=== PATIENT | male | born 1940 | race Caucasian/White ===

== ENCOUNTER → 2018-04-01 09:19 | Outpatient (CLI) | payer MEDICARE, SELFPAY ==
[2018-04-01 11:30] LABS: PSA,Total- Diagnostic 0.31 ng/mL (0.0-4.0)
== END ==
PROVIDERS: Family Provider Nurse Practitioner Family; PCP Nurse Practitioner Family; Visit Provider Urology
DX: C61 Malignant neoplasm of prostate (principal)
CPT/HCPCS: 36415; 84153

== ENCOUNTER → 2018-04-16 06:32 | Outpatient (CLI) | payer MEDICARE, SELFPAY ==
--- NOTE | 2018-04-16 06:35 | CT_ITS ---
STUDY: CT ABDOMEN WITH CONTRAST REASON FOR EXAM: Male, 78 years old. Renal mass RADIATION DOSAGE (If Supplied By Facility): CTDIvol = ( 19.03 ) mGy, DLP = ( 1211.78 ) mGycm TECHNIQUE: Transaxial images were obtained post I.V. administration of 100mL ml of Isovue 300 contrast, and without oral contrast. Sagittal and coronal images were reconstructed. Individualized dose optimization techniques were used for this CT. COMPARISON: None. FINDINGS: The visualized lung bases are unremarkable. The visualized portions of the heart are within normal limits. There are subcentimeter hypodensities in the liver which are too small to characterize. The liver is otherwise unremarkable. Normal gallbladder and extrahepatic biliary system. Normal pancreas. The spleen is enlarged, measuring 15 cm in maximal dimension. Normal bilateral adrenal glands. There are bilateral subcentimeter nonobstructing renal collecting system stones. There is no hydronephrosis. There are no right renal lesions. There is a 2.8 x 1.9 cm solid mass in the lower pole the left kidney which is highly suspicious for renal cell carcinoma. There is high density material in the collecting system of the left kidney which persists as a filling defect on the delayed images (for example image 28 series 4). This is suspicious for transitional cell carcinoma. The visualized bowel demonstrates no evidence of obstruction. Normal abdominal aorta. Normal inferior vena cava. Normal retroperitoneum. Normal abdominal wall. Normal osseous structures. CT/Abdomen WITH IV Contrast IMPRESSION: 2.8 x 1.9 cm solid mass in the lower pole the left kidney which is highly suspicious for renal cell carcinoma. High density material in the collecting system of the left kidney which persists as a filling defect on the delayed images. This is suspicious for transitional cell carcinoma. Subcentimeter nonobstructing renal stones. No hydronephrosis. Splenomegaly. Electronically Signed: Mark Burris, at 19:46 EDT Tel , Service support ,
[2018-04-16 06:50] LABS: CREATININE FINGERSTICK 1.2 mg/dL (0.70-1.30); EGFR FINGERSTICK > 60.0000 mL/min (>60)
== END ==
PROVIDERS: Family Provider Nurse Practitioner Family; PCP Nurse Practitioner Family; Visit Provider Urology
DX: N28.89 Other specified disorders of kidney and ureter (principal)
CPT/HCPCS: 74160; Q9967

== ENCOUNTER 2018-05-21 12:31 | Inpatient (IN) | payer MEDICARE, SELFPAY ==
[2018-05-12 10:12] VITALS: BP 150/62; PULSE 59; RESP 16; TEMP 36.1; O2SAT 97; BMI 28.6
--- NOTE | 2018-05-12 10:18 | RAD_ITS ---
STUDY: X-RAY CHEST REASON FOR EXAM: Male, 78 years old. Pre-op. TECHNIQUE: PA and lateral chest COMPARISON: 12/14/2015. FINDINGS: The lungs are clear and expanded. Normal cardiomediastinal silhouette, gerry and pleural margins. No acute osseous or upper abdominal process. RAD/Chest PA and Lateral IMPRESSION: No acute cardiopulmonary process. Electronically Signed: Severino Ellison, at 11:09 EDT Tel , Service support ,
--- NOTE | 2018-05-12 10:18 | SDCEKG_ITS ---
Test Reason : Blood Pressure : / mmHG Vent. Rate : 060 BPM Atrial Rate : 060 BPM P-R Int : 180 ms QRS Dur : 148 ms QT Int : 470 ms P-R-T Axes : 034 000 -04 degrees QTc Int : 470 ms Sinus rhythm with Possible Premature atrial complexes with Aberrant conduction Right bundle branch block Abnormal ECG Confirmed by LIZ AVILES, SLADE ([id number]), health editor STANTON TA ([id number]) on 05/14/2018 10:25:35 AM Referred By: Bhargav Morel Confirmed By:SLADE HILL MD
[2018-05-12 11:06] LABS: Color, Urine Yellow (Yellow); Glucose, Dipstick Normal (Normal); Ketone-Dipstick Negative (Negative); Leukocyte Esterase-Dipstick Negative /ul (Negative); Nitrite-Dipstick Negative (Negative); Occult Blood-Urine Negative /ul (Negative); Protein-Dipstick Negative (Negative); Specific Gravity, Urine 1.015 (1.002-1.030); Urine Bilirubin Dipstick Negative (Negative); Urine Clarity Clear (Clear); Urine Urobilinogen Normal (Normal); Urine pH 6.5 (5.0 - 8.0)
[2018-05-12 11:09] LABS: Hematocrit 42.9 % (40-54); Mean Corpuscular Hgb 31.4 pg (27.0-32.0); Mean Corpuscular Volume 89.7 fL (80-94); Mean Platelet Vol. 10.1 fl (6.2-12.0); Platelet Count 128 K/mm3 (150-450); RBC Distribution Width CV 14.3 % (11.6-14.6); RBC Distribution Width SD 47.1 fl (35.1-43.9); Red Blood Count 4.78 M/mm3 (4.6-6.2); White Blood Count 5.6 K/mm3 (4.4-11.0)
[2018-05-12 11:11] LABS: Scan Indicated on CBC? Y/N NO
[2018-05-12 11:21] LABS: ALB/GLOB Ratio 1.3 RATIO (0.9-2.4); AST(SGOT) 26 U/L (15-37); Alanine Aminotransfer ALT/SGPT 38 U/L (16-61); Albumin, Serum 3.9 g/dL (3.2-5.0); Alkaline Phosphatase 62 U/L (45-117); Anion Gap 3 (5-15); BUN 18 mg/dL (7-18); BUN/Creat Ratio 17.5 RATIO (10-20); Calcium,Total 8.9 mg/dL (8.5-10.1); Chloride 110 mmol/L (98-107); Creatinine, Serum 1.03 mg/dL (0.70-1.30); EST Glomerular Filtration Rate 75 mL/min (>60); Est Glom Filt Rate - Afr Amer 90 mL/min (>60); Globulin 2.9 g/dL (2.2-4.2); Glucose 92 mg/dL (74-106); Potassium 4.2 mmol/L (3.5-5.1); Protein, Total 6.8 g/dL (6.4-8.2); Sodium Level 142 mmol/L (136-145)
[2018-05-21] VITALS (10 sets, daily range): BP systolic 103–133; BP diastolic 55–88; PULSE 50–70; RESP 14–20; TEMP 36.1–36.7; O2SAT 93–99; BMI 28.6
[2018-05-21] MEDS: Cefazolin 2 GM in 0.9% Normal Saline 100 ML IV (07:28)
--- NOTE | 2018-05-21 07:30 | KID_PTH ---
PATIENT: ROSA MONROY LOC: MS2 U#:[id number] AGE/SX: 78/M [place] [facility] [place]: Dr. 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 See cancer checklist below. AM:joshua 05/23/18 COMMENT KIDNEY CANCER SUMMARY: Procedure ? partial nephrectomy Specimen laterality - left Tumor size ? 3 x 2.5 x 2 cm Tumor focality - unifocal Macroscopic extent of tumor ? tumor confined to kidney Histologic type ? clear cell renal cell carcinoma Sarcomatoid features ? not identified Tumor necrosis - not identified Histologic grade (Beau nuclear grade) ? G2 (nuclei slightly irregular and focal nuclei evident) Microscopic tumor extension ? tumor limited to kidney Margins ? margin involved by invasive carcinoma Renal parenchymal margin is focally positive. Lymph-Vascular invasion ? not identified Regional lymph nodes ? not submitted Other tumor and/or tumor-like lesions ? mild arterionephrosclerosis PATHOLOGIC STAGE: pT1a Nx Mx The above summary is in compliance with [employer] (CAP) Cancer Protocols Checklist and [place] Joint Committee on Cancer (AJCC), Staging Manual, 8th Ed. Case has been reviewed in consultation with Dr. Forrest who concurs with the above diagnosis. IDC:[id number] MICROSCOPIC DESCRIPTION Slides are reviewed. GROSS DESCRIPTION Received in fixative is one container labeled with the patient's name and designated left renal mass. The specimen consists of a partial nephrectomy specimen measuring 5 x 4 x 2.5 cm and weighing 16 gm. One surface appears to be capsular. This area is inked black and the rest of the specimen is inked blue. Sections reveal a yellow mass with solid area measuring 3 x 2.5 x 2 cm. Area of necrosis or hemorrhage is not seen. The mass appears to be confined. No area of rupture is noted. A focal dobbs white area is noted most likely normal appearing portion of renal parenchyma. Gear Hobber Operator sections are submitted in 10 cassettes as follows: 1-6 ? entire tumor from one end to another end, 7-10 ? possible normal appearing portion of the renal parenchyma. Cassette 10 contains the other end of the specimen. / RASHAD:joshua 05/22/18 TC:0 CPT: 52267
[2018-05-21] MEDS: Bupivacaine 0.5% PF 10 ML VIAL (08:00)
--- NOTE | 2018-05-21 10:54 | PCM.OPRPT ---
Problem List (1) Left kidney mass Status: Acute Report of Operation Date of Procedure: 05/21/18 Pre-Operative Diagnosis: Left renal mass Post-Operative Diagnosis: Same Surgery/Procedure Performed:: Left laparoscopic robotic assisted partial nephrectomy, intraoperative ultrasound Description of Surgical Findings:: 78-year-old male presented to my office for follow-up regarding his prostate cancer he also had a small lesion on the kidney follow-up CAT scan was done from several years ago and we compared it to recent CAT scan that demonstrated an enlarging mass in the lower pole the left kidney suspicious for renal cell carcinoma or a type of kidney cancer we talked about the options of management including continued observation surgical removal and percutaneous procedures after reviewing everything with the patient were to proceed with a laparoscopic-assisted robotic partial nephrectomy in the left side. Patient was taken back to the operating room, timeout was performed, is placed supine on the table and underwent general anesthesia by PROCESSOR SOLID PROPELLANT and the care consultant Dr. Pollack, after intubation the plate Justice catheter was placed, patient was then positioned with the left side up semi-flank with the table flexed, we secured the patient to the table made sure all pressure points were padded we laid the hand flat on his side across the body. The abdomen was shaved prepped and draped in usual sterile fashion, I then marked out my approach to the kidney we really use the lateral light of the rectus, made an incision in the abdomen advanced the Veress needle into the peritoneal cavity filled the peritoneal cavity CO2 gas placed my robotic camera trocar my left robotic trocar right robotic trocar and my second right robotic trocar. I then placed an air seal trocar through the umbilicus. We then docked the robot we placed the camera and the right scissors and left pro-grasp and started dissecting we first dissected by reflecting the colon off the kidney incising the white line of Toldt all the way down from the splenorenal ligament all the way down to the pelvis after the white line of Toldt was released and the colon was dissected off the kidney I then dissected the fatty tissue off Gerota's fascia and marked my way along the kidney until I encountered to the left gonadal vein going into the left renal vein was identified this then traced down the left gonadal vein to I encountered the ureter and the gonadal vein we went below the ureter and gonadal vein and then entered the space behind the kidney behind Gerota's behind behind the psoas muscle we then docked the extra arm and then placed the graft or into retract the kidney cephalad and then dissected along the course of the aorta towards the hilum until we encountered the gonadal vein going into the renal vein and then the renal artery and this renal artery was dissected had early branching and then we dissected down so we got to the base coming off the aorta once the renal artery was completely dissected then we pulled out the fourth arm and then did ultrasonography of the of kidney and identified the tumor is about 3 cm in the lower pole posterior aspect of the kidney, dissected out the lower pole the kidney circumferentially and identified the tumor that was posterior lower lower pole and examining the tumor location I felt a lower pole heminephrectomy would be the best approach to remove this 3 cm tumor so I marked out my incisional approach to the kidney and the tumor circumferentially all the way around dissect all the fat off once the the tumor is identified we had marked our landmarks for approach all the way around to do a complete complete resection then we went down to the hilum identified the renal artery again placed a short bulldog in the long bulldog of the renal artery for clamping the kidney turned pale white immediately and then we started with sharp dissection a broad approach anteriorly on the anterior surface of the kidney working posteriorly to the tumor as we dissected deep into the kidney the tumor was then elevated off there was no violation of the tumor capsule tumor was removed intact with a good margin off the lower pole of the left kidney placed immediately in Endo Catch bag the margins were grossly negative I then ran the base of the tumor with 30V lock ran 3V lock stitches along the base of the tumor resection in the lower heminephrectomy site and then we unclamped the kidney clamp time was 19 minutes with her clamp time. I then placed 0 Vicryl sutures CT1 needle in a bolster fashion in the lower pole of the kidney finally had a nice complete closure and there was no bleeding from the lower part of the kidney we then tacked the kidney back up to the end lateral sidewall, we extracted the tumor through the lower port and closed the tumor with a Thanh Staples stitches for complete closure we then closed our air seal port and her camera trocar with Thanh Staples stitches all the trochars were removed the skin incisions were closed with subcuticular stitches patient's anesthetic is currently being reversed there is minimal blood loss during the case. At the end of the case the kidney was nice and pink and healthy looking. Type of Anesthesia:: General Drains: justice. Estimated Blood Loss (mL): 100cc - Admit VTE Documentation VTE Present on Admission: No VTE Mechan Device Prophylaxis: SCD's VTE Pharm Prophylaxis ordered?: No
[2018-05-21] MEDS: Ketorolac 15 MG/ML Vial IV ×2 (13:36→19:42)
[2018-05-21] MEDS: 0.45% Normal Saline 1,000 ML 75 ML IV (13:37)
[2018-05-21] MEDS: 0.9% NaCl Peripheral Flush Adult/Peds IV (13:37)
[2018-05-21] MEDS: Docusate Sodium 100 MG Capsule PO (19:42)
[2018-05-21] MEDS: Atorvastatin Calcium 10 MG Tablet PO (19:42)
[2018-05-22 01:53] VITALS: BP 108/48; PULSE 61; RESP 18; TEMP 37.1; O2SAT 94
[2018-05-22] MEDS: 0.45% Normal Saline 1,000 ML 75 ML IV (02:01)
[2018-05-22] MEDS: Ketorolac 15 MG/ML Vial IV ×2 (02:01→09:56)
[2018-05-22 08:00] VITALS: BP 116/55; PULSE 65; RESP 18; TEMP 36.8; O2SAT 95
--- NOTE | 2018-05-22 09:48 | CASEMGMT ---
SEE RN PAUL ASSESS LINK: D/C PLAN: HOME Intro role to RN PAUL. Pt sitting up in recliner chair. @ bedside. Assess completed. Pt independent @ home w/ambulation and w/ADL's. Pt uses no DME, still drives, and denies having any questions or needs. CM to follow for discharge planning needs that may arise. Bo BSN DOROTHY MILLER
[2018-05-22 09:55] VITALS: PULSE 74
[2018-05-22] MEDS: Metoprolol(XL)Succ 25 MG Tablet PO (09:55)
[2018-05-22] MEDS: Pantoprazole Sodium 20 MG Tablet PO (09:56)
[2018-05-22] MEDS: Docusate Sodium 100 MG Capsule PO (09:56)
[2018-05-22] MEDS: 0.9% NaCl Peripheral Flush Adult/Peds IV (10:00)
[2018-05-22] MEDS: Magnesium Hydroxide 30 ML UDC 15 ML PO (10:00)
[2018-05-22 10:07] VITALS: RESP 18; O2SAT 94
[2018-05-22 12:31] VITALS: PULSE 71; RESP 18; O2SAT 94
[2018-05-22 13:51] VITALS: BP 109/52; PULSE 70; RESP 18
--- NOTE | 2018-05-23 13:34 | PCM.DC.URO ---
Discharge Diet: Light diet - advance as tolerated Discharge Activity: Return to Normal Activity Allergies/Adverse Reactions: Allergies amoxicillin Adverse Reaction (Intermediate, Verified 05/12/18 09:56) Upset Stomach Medications to take at Discharge Simvastatin [Zocor] 20 mg PO QHS 02/01/15 Glucosamine-Chondroitin 1 tab PO BID 11/23/15 Metoprolol(XL)Succ [Toprol Xl (Beta Gurwinder)] 25 mg PO DAILY 11/23/15 Primary Care Physician: Severino Mina, TRANS ROUTER-C [Primary Care Provider] - Test Results: Test results from this visit will be discussed in further detail at your follow-up appointment, if applicable. Please Follow Up With: Bhargav Morel MD When: in 2 weeks, please call to make an appointment.
--- NOTE | 2018-05-23 13:35 | PCM.DC.SUM ---
Discharge Date and Diagnosis Date of Admission: 05/21/18 Date of Discharge: 05/22/18 - Secondary Discharge Diagnosis Chronic Problems Secondary malignant neoplasm of bone (Chronic) Malignant neoplasm of prostate (Chronic) Hospital Course and Treatment Operations: - - robotic partial nephrectomy Procedures: None Summary of Care Provided: The patient is a 78 year old male s/p robotic partial nephrectomy discharge home on Pod#1 in good condition. justice out voiding,karina reg diet. Discharge Diet: Light diet - advance as tolerated Discharge Activity: Return to Normal Activity Home Medications: Medications to take at Discharge Simvastatin [Zocor] 20 mg PO QHS 02/01/15 Glucosamine-Chondroitin 1 tab PO BID 11/23/15 Metoprolol(XL)Succ [Toprol Xl (Beta Gurwinder)] 25 mg PO DAILY 11/23/15 Primary Care Physician: Severino Mina, RADIO PERSONALITY-C [Primary Care Provider] - Please Follow Up With: Bhargav Morel MD When: in 2 weeks, please call to make an appointment. Medical Necessity - Tobacco Use Smoking Status: Never smoker Tobacco Use: Non-smoker Meaningful Use Info Meaningful Use Diagnoses (Choose all that apply): None applicable
== END 2018-05-22 13:45 | disposition home or self-care (01) | DRG 657 ==
LOC: SDC 16:25 → MS2 18:33
PROVIDERS: Admitting Provider Urology; Family Provider Nurse Practitioner Family; PCP Nurse Practitioner Family; Visit Provider Urology
PROC: 0TB14ZZ Excision of Left Kidney, Percutaneous Endoscopic Approach (ICD-10-PCS; CPT 50543; principal; 2018-05-21 07:10)
DX: D49.512 Neoplasm of unspecified behavior of left kidney (principal); C79.51 Secondary malignant neoplasm of bone; C61 Malignant neoplasm of prostate; I10 Essential (primary) hypertension; E78.00 Pure hypercholesterolemia, unspecified
CPT/HCPCS: 71046; 80053; 81002; 85027; 86850; 86900; 86920; 88307; 93005; J7120; A4216; J2405

== ENCOUNTER → 2018-10-16 11:07 | Outpatient (CLI) | payer MEDICARE, SELFPAY ==
[2018-07-15 08:41] VITALS: BMI 27.8
[2018-10-16 12:18] LABS: PSA,Total- Diagnostic 1.66 ng/mL (0.0-4.0)
== END ==
PROVIDERS: Family Provider Nurse Practitioner Family; PCP Nurse Practitioner Family; Referring Provider Urology; Visit Provider Urology
DX: C61 Malignant neoplasm of prostate (principal)
CPT/HCPCS: 36415; 84153

== ENCOUNTER → 2018-10-21 14:32 | Outpatient (CLI) | payer MEDICARE, SELFPAY ==
--- NOTE | 2018-10-21 14:36 | CT_ITS ---
STUDY: CT ABDOMEN AND PELVIS WITH AND WITHOUT CONTRAST REASON FOR EXAM: Male, 78 years old. Renal cell carcinoma RADIATION DOSAGE (If Supplied By Facility): CTDIvol = ( 22.73 ) mGy, DLP = ( 3254.93 ) mGycm TECHNIQUE: Transaxial images were obtained from the dome of the diaphragm to the symphysis pubis without oral contrast. 75CC ml of Isovue 300 contrast was administered. Sagittal and coronal images were reconstructed. Individualized dose optimization techniques were used for this CT. COMPARISON: None. FINDINGS: The lung bases are clear. Small areas of low attenuation in the right lobe. The measure 0.6 and 1.3 cm. They look benign. No dilated intrahepatic biliary radicles. The gallbladder is contracted and contains no stones. Mild splenomegaly. (14.9 cm) The pancreas is normal. Both adrenals are normal. Nephron sparing interval left partial nephrectomy. The calculus in the inferior pole calyx in the left kidney seen on the previous study of April 16, 2018 is no evident. A 3 mm nonobstructing right calyceal calculus is noted The stomach is normal. There is no bowel distention, acute appendicitis or diverticulitis. No constricting lesions are seen in large bowel. The abdominal wall is intact with no hernias. There is no ascites or any free intraperitoneal air. No indication of epiploic appendagitis The vascular structures in the retroperitoneum are normal. There is no retrocrural, retroperitoneal or mesenteric adenopathy. There is retrolisthesis of L5 over S1 with multilevel degenerative changes of the lumbosacral spine. No osteolytic or osteoblastic changes are seen The urinary bladder is normal.--The prostate is normal. There is no inguinal or pelvic adenopathy. There is no inguinal hernia. . CT/CT Abd/Pelvis W/WO Contrast IMPRESSION: Nephron sparing partial left nephrectomy. A small right calyceal calculus. No evidence of metastatic disease No acute findings in the abdomen or pelvis. Specifically there is no acute appendicitis or diverticulitis. Mild splenomegaly. 2 small benign-appearing areas of low-attenuation in the liver Electronically Signed: Auugstin Obregon MD at 3:10 EST Tel , Service support ,
[2018-10-21 15:05] LABS: CREATININE FINGERSTICK 1.5 mg/dL (0.70-1.30)
== END ==
PROVIDERS: Family Provider Nurse Practitioner Family; PCP Nurse Practitioner Family; Referring Provider Urology; Visit Provider Urology
DX: N20.0 Calculus of kidney (principal); C64.9 Malignant neoplasm of unspecified kidney, except renal pelvis
CPT/HCPCS: 74178; Q9967

== ENCOUNTER → 2019-05-14 | Outpatient (CLI) | payer MEDICARE, SELFPAY ==
[2018-07-15 08:41] VITALS: BMI 27.8
== END | disposition home or self-care (01) ==
LOC: LAB 08:55
PROVIDERS: Family Provider Nurse Practitioner Family; PCP Nurse Practitioner Family; Referring Provider Urology; Visit Provider Urology
DX: C61 Malignant neoplasm of prostate (principal)
CPT/HCPCS: 36415; 84403

== ENCOUNTER → 2019-05-26 | Outpatient (CLI) | payer MEDICARE, SELFPAY ==
[2018-07-15 08:41] VITALS: BMI 27.8
[2019-05-26 09:05] LABS: Absolute Lymphocyte Count 1.66 X10^3/uL (0.83-4.51); Absolute Neutrophil Count 2.9 X10^3/uL (2.0-7.7); Basophil# 0.02 X10^3/uL; Basophil% 0.4 % (0-1); Eosinophil# 0.13 X10^3/uL; Eosinophils% 2.5 % (0-5); Hematocrit 42.8 % (40-54); Hemoglobin 14.6 g/dL (13.0-16.5); Lymphocyte # 1.66 X10^3/ul (4.0); Lymphocyte % 32.2 % (19-41); Mean Corp Hgb Conc 34.1 g/dL (32-36); Mean Corpuscular Hgb 31.2 pg (27.0-32.0); Mean Corpuscular Volume 91.5 fL (80-94); Mean Platelet Vol. 9.9 fl (6.2-12.0); Monocyte# 0.41 X10^3/uL; Monocyte% 7.9 % (0-10); NRBC Flagged by Analyzer 0 % (0-5); Neutrophil # 2.92 X10^3/uL (2.7-7.7); Neutrophil % 56.6 % (47-70); Platelet Count 110 K/mm3 (150-450); RBC Distribution Width CV 14.6 % (11.6-14.6); RBC Distribution Width SD 49.1 fl (35.1-43.9); Red Blood Count 4.68 M/mm3 (4.6-6.2); White Blood Count 5.2 K/mm3 (4.4-11.0)
[2019-05-26 09:39] LABS: ALB/GLOB Ratio 1.2 RATIO (0.9-2.4); AST(SGOT) 23 U/L (15-37); Alanine Aminotransfer ALT/SGPT 38 U/L (16-61); Albumin, Serum 3.6 g/dL (3.2-5.0); Alkaline Phosphatase 80 U/L (45-117); Anion Gap 5 (5-15); BUN 22 mg/dL (7-18); Calcium,Total 8.5 mg/dL (8.5-10.1); Chloride 110 mmol/L (98-107); Creatinine, Serum 1.05 mg/dL (0.70-1.30); EST Glomerular Filtration Rate 73 mL/min (>60); Est Glom Filt Rate - Afr Amer 88 mL/min (>60); Globulin 2.9 g/dL (2.2-4.2); Glucose 105 mg/dL (74-106); Potassium 3.8 mmol/L (3.5-5.1); Protein, Total 6.5 g/dL (6.4-8.2); Sodium Level 143 mmol/L (136-145)
== END | disposition home or self-care (01) ==
LOC: LAB 08:04
PROVIDERS: Family Provider Nurse Practitioner Family; PCP Nurse Practitioner Family; Referring Provider Internal Medicine Medical Oncology; Visit Provider Internal Medicine Medical Oncology
DX: C61 Malignant neoplasm of prostate (principal)
CPT/HCPCS: 36415; 80053; 84153; 85025

== ENCOUNTER → 2019-11-12 13:21 | Outpatient (CLI) | payer MEDICARE, SELFPAY ==
[2019-05-28 13:05] VITALS: BMI 27.8
[2019-11-12 14:53] LABS: PSA,Total- Diagnostic 9.87 ng/mL (0.0-4.0)
== END ==
PROVIDERS: PCP Nurse Practitioner Family; Referring Provider Urology; Visit Provider Urology
DX: R97.21 Rising PSA following treatment for malignant neoplasm of prostate (principal)
CPT/HCPCS: 36415; 84153

== ENCOUNTER → 2020-02-15 05:59 | Outpatient (CLI) | payer MEDICARE, SELFPAY ==
[2019-05-28 13:05] VITALS: BMI 27.8
== END ==
PROVIDERS: PCP Nurse Practitioner Family; Referring Provider Urology; Visit Provider Urology
DX: C61 Malignant neoplasm of prostate (principal)
CPT/HCPCS: 36415; 84153

== ENCOUNTER → 2020-02-26 08:13 | Outpatient (CLI) | payer MEDICARE, SELFPAY ==
[2019-05-28 13:05] VITALS: BMI 27.8
--- NOTE | 2020-02-26 08:18 | NM_ITS ---
CLINICAL: 79-year-old male with reported history of carcinoma of the prostate. WHOLE BODY 99m Tc MDP RADIONUCLIDE BONE SCINTIGRAPHY COMPARISON: None available FINDINGS: Following the intravenous administration of 25.9 mCi of 99m Tc MDP, whole body bone images reveal: 1. Increased radiopharmaceutical concentration is identified in the left acetabulum, the left inferior pubic ramus, left posterior ilium, the right anterolateral fourth rib. 2. Enhanced tracer distribution is defined in the mid cervical spine posteriorly on the left, third-fifth lumbar vertebra, bilateral wrist articulations, both knees, acromioclavicular compartments of the bilateral shoulders, lateral glenohumeral compartment of the right shoulder, left ankle, the left forefoot. 3. The remaining skeletal structures are scintigraphically unremarkable with the bilateral renal images and urinary bladder activity identified. NM/Bone Scan Whole Body IMPRESSION: 1. The increase in radiopharmaceutical concentration identified in the left anterolateral fourth rib, left acetabulum, left posterior ilium and left inferior pubic ramus likely represent osteoblastic turnover activity to skeletal metastatic disease. Correlation with plain film radiography may be of benefit for further evaluation. 2. Degenerative arthritis appears expressed in the cervical and lumbar spine, bilateral wrists, knee articulations bilaterally, right and left shoulders, left ankle and left forefoot. Electronically Signed: Severino Green DO at 11:37 EDT Tel , Service support ,
== END ==
PROVIDERS: PCP Nurse Practitioner Family; Referring Provider Urology; Visit Provider Urology
DX: C61 Malignant neoplasm of prostate (principal)
CPT/HCPCS: 78306

== ENCOUNTER → 2020-03-01 06:40 | Outpatient (CLI) | payer MEDICARE, SELFPAY ==
[2019-05-28 13:05] VITALS: BMI 27.8
--- NOTE | 2020-03-01 06:43 | CT_ITS ---
STUDY: CT ABDOMEN AND PELVIS WITH CONTRAST REASON FOR EXAM: Male, 79 years old. RISING PSA, PROSTATE CANCER 6 YEARS AGO WITH CHEMO. PARTIAL LEFT NEPHRECTOMY DUE TO KIDNEY CANCER RADIATION DOSAGE (If Supplied By Facility): CTDIvol = ( 14.78 ) mGy, DLP = ( 1067.63 ) mGycm TECHNIQUE: Transaxial images were obtained from the dome of the diaphragm to the symphysis pubis without oral contrast. IV 75mL Isovue-300 was administered. Sagittal and coronal images were reconstructed. Individualized dose optimization techniques were used for this CT. COMPARISON: Comparison is made with prior examination dated October 21, 2018. FINDINGS: Stable mild increased linear markings at the lung bases suggestive of scarring. The visualized portions of the heart are within normal limits. There is decreased attenuation of the liver consistent with steatosis. Stable tiny low-attenuation cyst in the right lobe. Normal gallbladder and extrahepatic biliary system. There is stable mild splenomegaly. Normal pancreas. Normal bilateral adrenal glands. Stable 1 cm cyst in the anterior aspect of the right kidney. Stable 3 mm calculus in the lower pole calyx of the right kidney. Mild left hydronephrosis. Normal visualized stomach. Normal small intestine. There are multiple colonic diverticula consistent with diverticulosis. The appendix is visualized and appears normal. There is diffuse atherosclerotic calcification of the abdominal aorta and major visceral branches., without a demonstrated aneurysm. Normal inferior vena cava. Normal retroperitoneum. Normal urinary bladder. There are prostatic calcifications. There is a small umbilical hernia containing fat. Small left inguinal hernia containing fat. There are diffuse degenerative changes of the visualized lumbar spine. Loss of the normal lumbar lordosis. Stable minimal retrolisthesis of L5 on S1. CT/Abdomen/Pelvis WITH Contrast IMPRESSION: Stable examination. Electronically Signed: Anthony Linda, at 15:28 EDT , Service support ,
[2020-03-01 06:55] LABS: CREATININE FINGERSTICK 1.2 mg/dL (0.70-1.30); EGFR FINGERSTICK > 60.0000 mL/min (>60)
== END ==
PROVIDERS: PCP Nurse Practitioner Family; Referring Provider Urology; Visit Provider Urology
DX: C61 Malignant neoplasm of prostate (principal)
CPT/HCPCS: 74177; Q9967; A4216

== ENCOUNTER → 2020-05-23 06:06 | Outpatient (CLI) | payer MEDICARE, SELFPAY ==
[2019-05-28 13:05] VITALS: BMI 27.8
[2020-05-23 07:05] LABS: Absolute Lymphocyte Count 1.32 X10^3/uL (0.83-4.51); Basophil# 0.01 X10^3/uL; Basophil% 0.2 % (0-1); Eosinophil# 0.17 X10^3/uL; Eosinophils% 3.5 % (0-5); Hematocrit 42.9 % (40-54); Hemoglobin 14.8 g/dL (13.0-16.5); Lymphocyte # 1.32 X10^3/ul (4.0); Lymphocyte % 26.8 % (19-41); Mean Corp Hgb Conc 34.5 g/dL (32-36); Mean Corpuscular Hgb 31.2 pg (27.0-32.0); Mean Corpuscular Volume 90.5 fL (80-94); Mean Platelet Vol. 10.2 fl (6.2-12.0); Monocyte# 0.39 X10^3/uL; Monocyte% 7.9 % (0-10); NRBC Flagged by Analyzer 0 % (0-5); Platelet Count 124 K/mm3 (150-450); RBC Distribution Width CV 13.9 % (11.6-14.6); RBC Distribution Width SD 46.1 fl (35.1-43.9); Red Blood Count 4.74 M/mm3 (4.6-6.2); White Blood Count 4.9 K/mm3 (4.4-11.0)
[2020-05-23 07:53] LABS: ALB/GLOB Ratio 1.3 RATIO (0.9-2.4); AST(SGOT) 15 U/L (15-37); Alanine Aminotransfer ALT/SGPT 22 U/L (16-61); Albumin, Serum 3.8 g/dL (3.2-5.0); Alkaline Phosphatase 78 U/L (45-117); Anion Gap 6 (5-15); BUN 16 mg/dL (7-18); BUN/Creat Ratio 14.8 RATIO (10-20); Chloride 111 mmol/L (98-107); Creatinine, Serum 1.08 mg/dL (0.70-1.30); EST Glomerular Filtration Rate 70 mL/min (>60); Est Glom Filt Rate - Afr Amer 85 mL/min (>60); Globulin 2.9 g/dL (2.2-4.2); Glucose 118 mg/dL (74-106); LDH 169 U/L (87-241); Potassium 3.8 mmol/L (3.5-5.1); Protein, Total 6.7 g/dL (6.4-8.2); Sodium Level 142 mmol/L (136-145)
[2020-05-23 07:59] LABS: PSA,Total- Diagnostic 0.04 ng/mL (0.0-4.0)
[2020-05-23 14:11] LABS: Xtra Tube EP Lab EXTRA TUBE
== END ==
PROVIDERS: PCP Nurse Practitioner Family; Referring Provider Internal Medicine Medical Oncology; Visit Provider Internal Medicine Medical Oncology
DX: C61 Malignant neoplasm of prostate (principal); C79.51 Secondary malignant neoplasm of bone
CPT/HCPCS: 36415; 80053; 83615; 84153; 85025

== ENCOUNTER → 2020-06-08 08:24 | Outpatient (CLI) | payer MEDICARE, SELFPAY ==
[2020-05-30 13:26] VITALS: BMI 28.5
--- NOTE | 2020-06-08 08:32 | BD_ITS ---
STUDY: DUAL ENERGY X-RAY ABSORPTIOMETRY / DXA REASON FOR EXAM: Male, 80 years old. ON ANDROGEN SUPPRESSION MEDS FOR PROSTATE CANCER -- DOES MODERATE AMOUNT OF EXERCISE -- MADDY OF 2.5 INCHES TECHNIQUE: Bone Mineral Density (BMD) measurements of lumbar spine and bilateral hips were obtained. COMPARISON: None. FINDINGS: Lumbar Spine (L1-L4): g/cm2 (1.443) / T-score (1.7) / Z-score (2.4) Findings are suggestive of normal bone density with a low fracture risk. Left Femur Total: g/cm2 (0.948) / T-score (-1.1) / Z-score (0.0) Left Femoral Neck: g/cm2 (0.862) / T-score (-1.6) / Z-score (-0.1) Right Femur Total: g/cm2 (0.949) / T-score (-1.1) / Z-score (0.0) Right Femoral Neck: g/cm2 (0.914) / T-score (-1.2) / Z-score (0.3) BD/Dexa Bone Density Study IMPRESSION: The patient is considered osteopenic as outlined below according to World [employer] Organization (WHO) criteria with a moderate fracture risk. Reference Information: The T-score is the number of standard deviations above or below the standard which is normal for young adults at their peak bone mineral density. The World Health Organization (WHO) interprets the T-scores as follows: Above -1 Normal bone density Between -1 and -2.5 Osteopenia Equal to / or below -2.5 Osteoporosis As a practical clinical guideline, osteopenia may be graded as follows: Mild -1 through -1.5 Moderate -1.6 through -2.0 Severe -2.1 through -2.4 The Z-score is the number of standard deviations above or below age-matched controls. A Z-score of less than -1.5 would be considered abnormal. References: 1. NIH Osteoporosis and Related Bone Diseases http://www.osteo.org 2. International Society for Clinical Densitometry http://www.iscd.org 3. National Osteoporosis Foundation http://www.nof.org Electronically Signed: Anthony Linda, at 7:09 EDT , Service support ,
== END ==
PROVIDERS: PCP Nurse Practitioner Family; Referring Provider Internal Medicine Medical Oncology; Visit Provider Internal Medicine Medical Oncology
DX: C61 Malignant neoplasm of prostate (principal); C79.51 Secondary malignant neoplasm of bone
CPT/HCPCS: 77080

== ENCOUNTER → 2020-08-31 09:13 | Outpatient (CLI) | payer MEDICARE, SELFPAY ==
[2020-08-23 11:21] VITALS: BMI 28.4
[2020-08-31 11:21] LABS: PSA,Total- Diagnostic 0.01 ng/mL (0.0-4.0)
== END ==
PROVIDERS: PCP Nurse Practitioner Family; Referring Provider Urology; Visit Provider Urology
DX: R97.21 Rising PSA following treatment for malignant neoplasm of prostate (principal)
CPT/HCPCS: 36415; 84153

== ENCOUNTER → 2020-11-28 06:05 | Outpatient (CLI) | payer MEDICARE, SELFPAY ==
[2020-09-20 14:00] VITALS: BMI 28.4
[2020-11-28 07:55] LABS: PSA,Total- Diagnostic 0.05 ng/mL (0.0-4.0)
== END ==
PROVIDERS: PCP Nurse Practitioner Family; Referring Provider Urology; Visit Provider Urology
DX: C61 Malignant neoplasm of prostate (principal)
CPT/HCPCS: 36415; 84153

== ENCOUNTER → 2021-06-20 06:46 | Outpatient (CLI) | payer MEDICARE, SELFPAY ==
[2021-06-20 07:30] LABS: PSA,Total- Diagnostic 0.01 ng/mL (0.0-4.0)
== END ==
PROVIDERS: Internal Medicine Medical Oncology; PCP Nurse Practitioner Family; Referring Provider Urology; Visit Provider Urology
DX: C61 Malignant neoplasm of prostate (principal); C79.51 Secondary malignant neoplasm of bone
CPT/HCPCS: 36415; 84153

== ENCOUNTER → 2021-10-03 06:42 | Outpatient (CLI) | payer MEDICARE, SELFPAY ==
[2021-10-03 08:21] LABS: PSA,Total- Diagnostic 0.01 ng/mL (0.0-4.0)
== END ==
PROVIDERS: PCP Nurse Practitioner Family; Referring Provider Urology; Visit Provider Urology
DX: C61 Malignant neoplasm of prostate (principal)
CPT/HCPCS: 36415; 84153

== ENCOUNTER 2021-10-17 09:17 | Outpatient (CLI) | payer MEDICARE, SELFPAY ==
--- NOTE | 2021-10-17 09:24 | NM_ITS ---
CLINICAL: 81-year-old male with reported history of carcinoma of the prostate. WHOLE BODY 99m Tc MDP RADIONUCLIDE BONE SCINTIGRAPHY COMPARISON: Previous whole body bone scintigraphy study dated 02/26/2020 FINDINGS: Following the intravenous administration of 25.4 mCi of 99m Tc MDP, whole body bone images reveal: 1. Increased radiopharmaceutical concentration is persistently defined in the cephalad aspect of the left sacroiliac joint, the left acetabulum and inferior pubic ramus, the right anterolateral fourth rib, and newly apparent in the left anterior seventh rib. 2. Facilitated uptake is presently visualized in the right and left wrist articulations, acromioclavicular compartment of the right shoulder, lateral glenohumeral compartments of both shoulders, the left forefoot and right knee. 3. The remaining skeletal structures are scintigraphically unremarkable with the bilateral renal images and urinary bladder activity identified. The left kidney demonstrates markedly prominent collecting system activity. NM/Bone Scan Whole Body IMPRESSION: 1. 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 2. Degenerative arthritis appears expressed in the bilateral wrists, right and left shoulders, left forefoot and right knee. 3. Overall compared to the previous whole body bone scintigraphy study dated 02/26/2020, there is continued demonstration of osteoblastic turnover attributed to osseous metastasis with no significant interval change. Electronically Signed: Severino Green DO at 22:17 EST Tel , Service support ,
== END 2021-10-17 23:59 | disposition short-term general hospital (02) ==
LOC: NM 09:21
PROVIDERS: PCP Nurse Practitioner Family; Referring Provider Urology; Visit Provider Urology
DX: C61 Malignant neoplasm of prostate (principal)
CPT/HCPCS: 78306; A9503

== ENCOUNTER 2021-12-27 07:51 | Outpatient (CLI) | payer MEDICARE, SELFPAY ==
[2021-12-27 08:50] LABS: PSA,Total- Diagnostic 0.01 ng/mL (0.0-4.0)
== END 2021-12-27 23:59 | disposition home or self-care (01) ==
LOC: LAB 07:52
PROVIDERS: PCP Nurse Practitioner Family; Referring Provider Registered Nurse; Visit Provider Registered Nurse
DX: Z85.46 Personal history of malignant neoplasm of prostate (principal)
CPT/HCPCS: 36415; 84153

== ENCOUNTER → 2022-04-19 | Outpatient (CLI) | payer MEDICARE, SELFPAY ==
[2022-04-19 09:07] LABS: PSA,Total- Diagnostic 0.02 ng/mL (0.0-4.0)
== END | disposition home or self-care (01) ==
PROVIDERS: PCP Nurse Practitioner Family; Referring Provider Registered Nurse; Visit Provider Registered Nurse
DX: C61 Malignant neoplasm of prostate (principal)
CPT/HCPCS: 36415; 84153

== ENCOUNTER → 2022-07-24 | Outpatient (CLI) | payer MEDICARE, SELFPAY ==
[2022-07-24 08:49] LABS: PSA,Total- Diagnostic 0.01 ng/mL (0.0-4.0)
== END | disposition home or self-care (01) ==
LOC: LAB 07:32
PROVIDERS: PCP Nurse Practitioner Family; Referring Provider Urology; Visit Provider Urology
DX: C61 Malignant neoplasm of prostate (principal)
CPT/HCPCS: 36415; 84153

== ENCOUNTER → 2022-10-29 | Outpatient (CLI) | payer MEDICARE, SELFPAY ==
[2022-10-29 11:19] LABS: PSA,Total- Diagnostic 0.02 ng/mL (0.0-4.0)
== END | disposition home or self-care (01) ==
PROVIDERS: PCP Nurse Practitioner Family; Visit Provider Urology
DX: C61 Malignant neoplasm of prostate (principal); C79.51 Secondary malignant neoplasm of bone
CPT/HCPCS: 36415; 84153

== ENCOUNTER → 2023-01-29 | Outpatient (CLI) | payer MEDICARE, SELFPAY ==
--- NOTE | 2023-01-29 08:25 | BD_ITS ---
STUDY: DUAL ENERGY X-RAY ABSORPTIOMETRY / DXA REASON FOR EXAM: Male, 82 years old. OSTEOPENIA/BONE METS TECHNIQUE: Bone Mineral Density (BMD) measurements of lumbar spine and bilateral hips were obtained. COMPARISON: Comparison is made with prior study June 08, 2020. FINDINGS: Lumbar Spine (L1-L4): g/cm2 (1.220) / T-score (1.2) / Z-score (2.4) Findings are suggestive of normal bone density with a low fracture risk. Left Femur Total: g/cm2 (0.977) / T-score (-0.4) / Z-score (0.7) Left Femoral Neck: g/cm2 (0.739) / T-score (-1.4) / Z-score (0.2) Right Femur Total: g/cm2 (0.946) / T-score (-0.6) / Z-score (0.5) Right Femoral Neck: g/cm2 (0.773) / T-score (-1.2) / Z-score (0.4) The T-Scores on the most recent prior examination were: Lumbar Spine (L1-L4): There has been worsening of bone density since the previous examination. Left Femur Total: which represents an improvement of 10.5%. Right Femur Total: which represents an improvement of 6.9%. BD/Dexa Bone Density Study IMPRESSION: The patient is considered osteopenic as outlined below according to World [place] Organization (WHO) criteria with a low fracture risk. There has been improvement of bone density since the previous examination. Reference Information: The T-score is the number of standard deviations above or below the standard which is normal for young adults at their peak bone mineral density. The World Health Organization (WHO) interprets the T-scores as follows: Above -1 Normal bone density Between -1 and -2.5 Osteopenia Equal to / or below -2.5 Osteoporosis As a practical clinical guideline, osteopenia may be graded as follows: Mild -1 through -1.5 Moderate -1.6 through -2.0 Severe -2.1 through -2.4 The Z-score is the number of standard deviations above or below age-matched controls. A Z-score of less than -1.5 would be considered abnormal. References: 1. NIH Osteoporosis and Related Bone Diseases www osteo.org 2. International Society for Clinical Densitometry www iscd.org 3. National Osteoporosis Foundation www nof.org Electronically Signed: Anthony Linda MD at 9:05 EDT ,
[2023-01-29 10:18] LABS: PSA,Total- Diagnostic 0.03 ng/mL (0.0-4.0)
== END | disposition home or self-care (01) ==
PROVIDERS: Urology; PCP Nurse Practitioner Family; Referring Provider Internal Medicine Medical Oncology; Visit Provider Internal Medicine Medical Oncology
DX: C61 Malignant neoplasm of prostate (principal); C79.51 Secondary malignant neoplasm of bone; Z13.820 Encounter for screening for osteoporosis; M85.89 Other specified disorders of bone density and structure, multiple sites
CPT/HCPCS: 36415; 77080; 84153

== ENCOUNTER → 2023-05-09 | Outpatient (CLI) | payer MEDICARE, SELFPAY ==
[2023-05-09 08:04] LABS: PSA,Total- Diagnostic 0.05 ng/mL (0.0-4.0)
== END | disposition home or self-care (01) ==
LOC: LAB 07:00
PROVIDERS: PCP Nurse Practitioner Family; Referring Provider Registered Nurse; Visit Provider Registered Nurse
DX: C61 Malignant neoplasm of prostate (principal)
CPT/HCPCS: 36415; 84153

== ENCOUNTER → 2023-08-12 | Outpatient (CLI) | payer MEDICARE, SELFPAY | END | disposition home or self-care (01) | LOC: LAB 06:58 | PROVIDERS: PCP Nurse Practitioner Family; Referring Provider Urology; Visit Provider Urology | DX: C61 Malignant neoplasm of prostate (principal) | CPT/HCPCS: 36415; 84153 ==

== ENCOUNTER → 2023-11-11 | Outpatient (CLI) | payer MEDICARE, SELFPAY ==
[2023-11-11 10:23] LABS: PSA,Total- Diagnostic 0.17 ng/mL (0.0-4.0)
== END | disposition home or self-care (01) ==
LOC: LAB 09:12
PROVIDERS: PCP Nurse Practitioner Family; Referring Provider Urology; Visit Provider Urology
DX: C61 Malignant neoplasm of prostate (principal)
CPT/HCPCS: 36415; 84153

== ENCOUNTER → 2024-02-17 | Outpatient (CLI) | payer MEDICARE, SELFPAY ==
[2024-02-17 09:09] LABS: PSA,Total- Diagnostic 0.48 ng/mL (0.0-4.0)
== END | disposition home or self-care (01) ==
LOC: LAB 07:34
PROVIDERS: PCP Nurse Practitioner Family; Referring Provider Urology; Visit Provider Urology
DX: C61 Malignant neoplasm of prostate (principal)
CPT/HCPCS: 36415; 84153

== ENCOUNTER → 2024-02-28 | Outpatient (CLI) | payer MEDICARE, SELFPAY | END | disposition home or self-care (01) | LOC: PSN 06:48 | PROVIDERS: PCP Nurse Practitioner Family; Referring Provider Nurse Practitioner Family; Visit Provider Nurse Practitioner Family | DX: I47.10 Supraventricular tachycardia, unspecified (principal) | CPT/HCPCS: 93225; 93226 ==

== ENCOUNTER → 2024-04-30 | Outpatient (CLI) | payer MEDICARE, SELFPAY ==
--- NOTE | 2024-04-30 07:51 | ECHOD_ITS ---
Reason For Study: AFib/Flutter Procedure This was a 2D Doppler, Color Flow transthoracic echocardiogram. The study was technically difficult. Exam performed in department. Left Ventricle Normal LV size. Left ventricular systolic function is normal. The left ventricular ejection fraction is 55 %. No regional wall motion abnormalities noted. Right Ventricle Normal RV size. Normal systolic function. Atria Normal left atrium. Normal right atrium. Mitral Valve Normal mitral valve. Tricuspid Valve Normal tricuspid valve. Mild (1+) tricuspid valve insufficiency. Pulmonary artery systolic pressure is 36 mmHg. Aortic Valve Trisinus/trileaflet aortic valve. Mild focal aortic valve calcification. Mild (1+) eccentric aortic valve insufficiency. Pulmonic Valve Normal pulmonic valve. Great Vessels Normal aortic root. The pulmonary artery is normal size. Inferior vena cava collapse with respiration. Pericardium/Pleural No pericardial effusion. MMode/2D Measurements & Calculations LVIDd: 5.4 cm IVSd: 1.0 cm Ao root diam: 3.9 cm LVIDs: 4.1 cm LVPWd: 1.0 cm LA dimension: 4.4 cm RVDd: 4.1 cm FS: 23.8 % LAV(MOD-bp): 62.9 ml LA A4 area: 20.5 cm2 RA A4 area: 18.8 cm2 LAV(MOD-bp) Indexed: 30.2 ml/m2 LAV(MOD-sp2): 65.7 ml LAV(MOD-sp4): 58.3 ml TAPSE: 2.1 cm Doppler Measurements & Calculations MV E max bhargav: 32.2 cm/sec Lat Peak E' Bhargav: 5.0 cm/sec Med Peak E' Bhargav: 6.9 cm/sec E/E' lat: 6.4 E/E' med: 4.7 MV V2 max: 79.1 cm/sec Ao V2 max: 155.8 cm/sec AI max bhargav: 335.9 cm/sec MV max P.5 mmHg Ao max P.7 mmHg AI max P.2 mmHg MV V2 mean: 36.9 cm/sec Ao V2 mean: 105.1 cm/sec MV mean P.67 mmHg Ao mean P.1 mmHg AI dec slope: 167.9 cm/sec2 MV V2 VTI: 26.3 cm Ao V2 VTI: 35.7 cm AI P1/2t: 585.9 msec AV (velocity ratio): 0.55 LV V1 max: 91.7 cm/sec PA V2 max: 90.7 cm/sec TR max bhargav: 285.4 cm/sec LV V1 max P.4 mmHg PA max PG (full): 1.3 mmHg TR max P.6 mmHg LV V1 mean P.1 mmHg LV V1 mean: 68.9 cm/sec LV V1 VTI: 19.8 cm ECHO/Echo Complete Interpretation Summary Normal LV size. Left ventricular systolic function is normal. The left ventricular ejection fraction is 55 %. Mild focal aortic valve calcification. Pulmonary artery systolic pressure is 36 mmHg. Ordering Physician: Alek Carrasco Referring Physician: Alek Carrasco Performed By: Tobi Perez RCS
== END | disposition home or self-care (01) ==
LOC: CVS 07:50
PROVIDERS: PCP Nurse Practitioner Family; Referring Provider Internal Medicine Cardiovascular Disease; Visit Provider Internal Medicine Cardiovascular Disease
DX: I48.0 Paroxysmal atrial fibrillation (principal)
CPT/HCPCS: 93306

== ENCOUNTER → 2024-05-21 | Outpatient (CLI) | payer MEDICARE, SELFPAY ==
[2024-05-21 07:47] LABS: PSA,Total- Diagnostic 1.13 ng/mL (0.0-4.0)
== END | disposition home or self-care (01) ==
LOC: LAB 06:08
PROVIDERS: PCP Nurse Practitioner Family; Referring Provider Urology; Visit Provider Urology
DX: R97.20 Elevated prostate specific antigen [PSA] (principal)
CPT/HCPCS: 36415; 84153

== ENCOUNTER → 2024-08-25 | Outpatient (CLI) | payer MEDICARE, SELFPAY ==
[2024-08-25 08:22] LABS: PSA,Total- Diagnostic 2.83 ng/mL (0.0-4.0)
== END | disposition home or self-care (01) ==
LOC: LAB 07:40
PROVIDERS: PCP Nurse Practitioner Family; Referring Provider Nurse Practitioner; Visit Provider Nurse Practitioner
DX: C61 Malignant neoplasm of prostate (principal)
CPT/HCPCS: 36415; 84153

== ENCOUNTER 2024-10-10 08:10 | Emergency (ER) | payer MEDICARE, SELFPAY ==
[2024-10-10 08:11] VITALS: BP 114/78; PULSE 77; RESP 15; TEMP 36.1; O2SAT 98; BMI 29.5
--- NOTE | 2024-10-10 08:54 | CT_ITS ---
We are attempting to reach an attending provider to discuss findings. An addendum with communication details will be sent when the communication is complete. STUDY: CT CHEST, ABDOMEN T PELVIS WITH CONTRAST REASON FOR EXAM: Male, 84 years old. S/p fall with right flank pain and hematuria, rib pain. Hx renal cancer with partial left nephrectomy 5 years ago, prostate cancer with mets. RADIATION DOSAGE (If Supplied By Facility): CTDIvol = ( ) mGy, DLP = ( ) mGycm TECHNIQUE: Transaxial imaging was performed following intravenous administration of IV 75mL Isovue-370. Multiplanar coronal and sagittal images were reformatted. Individualized dose optimization techniques were used for this CT. COMPARISON: October 21, 2018 FINDINGS: CHEST There are mild interstitial increased opacities of the lungs. There is no demonstrated pleural abnormality. Normal heart and pericardium. There are paratracheal and subcarinal lymph nodes measuring 1.5 cm. Normal hilar regions. Normal unenhanced pulmonary arteries. There is atherosclerotic calcification of the aortic arch with tortuosity and elongation of the aortic arch and descending thoracic aorta. There are multi-level degenerative changes of the thoracic spine. There is sclerosis of the right anterior fourth rib. There is no demonstrated abnormality of the visualized upper abdomen. ABDOMEN There is 0.5 cm cyst of the liver. Normal gallbladder and extrahepatic biliary system. There is moderate splenomegaly. Normal pancreas. Normal bilateral adrenal glands. There is 1.5 cm cyst of the right kidney. There is moderate left hydronephrosis. There is wall thickening in the renal pelvis with 4.2 x 3.5 cm mass extending to the ureteropelvic junction. Normal visualized stomach. Normal small intestine. Normal colon. There is non-visualization of the appendix. There is diffuse atherosclerotic calcification of the abdominal aorta, without a demonstrated aneurysm. Normal inferior vena cava. Normal retroperitoneum. There is a small umbilical hernia containing fat. There are diffuse degenerative changes of the visualized lumbar spine. PELVIS Normal urinary bladder. Normal visualized small intestine. Normal visualized colon. There is no pelvic fluid. There is no pelvic lymphadenopathy or mass lesion. There are prostatic calcifications. Normal visualized pelvic arteries. Normal abdominal wall. There is sclerosis of the left sacrum and inferior pubic ramus. CT/CT Chest, Abd, Pel w/Contrast IMPRESSION: Mass in the left renal pelvis with hydronephrosis consistent with recurrence of renal cancer. Sclerotic osseous lesions consistent with metastatic prostate cancer. Splenomegaly. Interstitial fibrosis. No acute fracture. No solid organ injury. Electronically Signed: Matthew Clancy MD at 11:09 EST ,
--- NOTE | 2024-10-10 08:56 | ED.VIS.FALL ---
HPI HPI - Fall History of Present Illness Chief Complaint: Fall Detail of Chief Complaint: Slipped and fell on the ice last night around 6 PM. Informant: patient and family (Accompanied by his daughter.) Occured/Mechanism Occurred: Yesterday Mechanism/Context: Yes same level fall and Yes slip Usually ambulates: Without assistance Pain/Injury Pain Location: chest (Right lower lateral rib cage. Right flank.) Quality of Pain: Dull and Aching Current Severity: Mild Maximum Severity: Mild Associated Symptoms Associated Symptoms: Negative for Parasthesias, Weakness, Loss of function, Inability to ambulate, Loss of consciousness or Amnesia Narrative Narrative: 84-year-old male history of prostate cancer with bony mets. Prior OR. History of A-fib on the blood thinner Eliquis. Last night he slipped on the ice fell injuring his right rib cage and flank. This occurred around 6 PM. He noticed throughout the night when he was urinated he had gross hematuria. Also complains of mild right rib cage pain. Denies hitting his head. No LOC. No head or neck pain or headache. No other complaints. Prior similar symptoms: No Recent Illness/Hospitalization: No PFSH PFSH Medical History Paroxysmal supraventricular tachycardia Essential (primary) hypertension Hx of non-ST elevation myocardial infarction (NSTEMI) Palpitations Dizziness Fatigue Elevated PSA Kidney carcinoma Hyperlipidemia Bone cancer Left kidney mass Secondary malignant neoplasm of bone Malignant neoplasm of prostate Home Medications ?Medication ?Instructions ?Recorded ?Last Taken ?Type simvastatin 20 mg tablet 20 mg PO QHS 02/01/15 11/06/15 History enzalutamide 40 mg capsule (Xtandi) 160 mg PO DAILY 03/08/21 Unknown History calcium carbonate 1,500 mg PO DAILY 02/25/24 Unknown History leuprolide (3 month) 22.5 mg (3 22.5 mg subcut [id number] 04/01/24 Unknown History month) subcutaneous syringe ([facility]) metoprolol succinate 50 mg 50 mg PO DAILY #90 tabs 04/01/24 Unknown Rx tablet,extended release 24 hr glucos sul [id number] 1 cap PO DAILY 06/29/24 Unknown History [Glucosamine Chondroitin] apixaban 5 mg tablet (Eliquis) 5 mg PO BID #180 tabs 08/12/24 Unknown Rx Allergy/AdvReac Type Severity Reaction Status Date / Time amoxicillin AdvReac Intermediate Upset Verified 10/10/24 08:13 Stomach Family History Father Heart disease Mother Breast cancer Surgical History History of left heart catheterization (08/08/15) History of partial nephrectomy History of cataract extraction Social History Smoking Status: Never smoker alcohol intake: never substance use type: does not use caffeine: No ROS ROS ED ROS Narrative Denies recent illness. Hematuria post fall. Constitutional Constitutional ED: Denies chills or fever(s) Eyes Eyes: Denies blurry vision ENT ENT ED: Denies ear pain Cardiovascular Cardiovascular: Denies chest pain Respiratory/Chest Respiratory/Chest: Denies cough Gastrointestinal Gastrointestinal: Denies abdominal pain Genitourinary Genitourinary ED: Denies dysuria Musculoskeletal Musculoskeletal: Denies arthralgias Integumentary Denies abscess Neurologic Neurologic: Denies headache(s) Psychiatric Psychiatric: Denies anxiety Endocrine Endocrinology: Denies polydipsia Hematologic/Lymphatic Hematologic/Lymphatic: Denies lymphadenopathy Allergic/Immunologic Allergic/Immunologic ED: Denies mouth swelling EXAM Physical Exam Narrative Exam Narrative: Well-appearing 84-year-old male. Vital signs stable afebrile. Daughter at bedside. Pulse ox 90% on room air no hypoxia. H EENT exam pupils round reactive light. Moist weeks membranes. No trauma to his face or scalp. Nontender. No hematomas. No contusions. No lacerations. Neck nontender. Back nontender. No bruising. Lungs clear to auscultation. Heart regular rhythm rate about 77 no murmur. Chest wall and ribs is mild right lower rib cage tenderness. No bruising or crepitance. No subcu air. Abdomen is soft and nontender. Normal bowel sounds without peritoneal signs. There is no bruising of his abdomen or flank. Pelvic girdle is intact. He is moving all 4 extremities. Normal strength. No deformity. Normal range of motion. Neurologically is awake and alert. Answering questions following commands. GCS of 15. Const Vital Signs: 10/10/24 08:11 10/10/24 09:10 10/10/24 10:44 Temperature 96.9 F L Temperature Source Temporal Pulse Rate 77 81 Respiratory Rate 15 16 Respiratory Effort Normal Non-Labored Respiratory Pattern Normal Blood Pressure 114/78 131/71 H Blood Pressure Mean 90 91 Pulse Ox 98 95 98 Oxygen Delivery Method Room Air Room Air Room Air Positive well nourished and well developed; Negative for cachectic, contractures or unkempt General Appearance ED: well developed and NAD; Negative for unkempt, cachectic or contractures Nutritional Appearance: Negative for cachectic HEENT Reports normocephalic atraumatic; Negative for trauma, contusion, hematoma or tenderness Eyes PERRL and EOMs intact bilaterally Neck full ROM, no lymphadenopathy and supple Chest Wall inspection of chest normal; Negative for palpation of chest normal Chest Narrative: Mild right lower rib cage tenderness. No bruising. No crepitance. No deformity. Resp normal respiratory effort, no retractions and clear to auscultation bilaterally Auscultation: Negative for rales, rhonchi, wheezes or diminished lung sounds Cardio regular rate, regular rhythm, S1 normal heart sound, S2 normal heart sound and no murmurs Rate: Negative for bradycardia or tachycardic GI non-tender, non-distended and no masses Inspection: Negative for abdominal distention Auscultation: normoactive bowel sounds Palpation: soft; Negative for guarding Back/Spine no CVA tenderness General Back: Negative for CVA tenderness Cervical Spine: Negative for cervical spine tenderness Thoracic Spine / Upper Back: Negative for ROM limited Lumbar Spine / Lower Back: Negative for lumbar spinal tenderness Neuro oriented x3, CN's II-XII intact bilaterally, moves all extremities and no focal motor deficits Bryan Coma Scale: document GCS findings Spontaneous Obeys Commands Oriented 15 Sensorium / Orientation: alert, oriented to person, oriented to place and oriented to time; Negative for orientation impaired, confused, lethargic or stuporous Motor Exam: strength 5/5 throughout Psych mental status grossly normal and thought process normal Appearance: Negative for unkempt Attitude: No agitated Mood & Affect: Negative for depressed, anxious or tearful Skin Rashes: no rashes MDM MDM MDM Narrative Medical decision making narrative: 84-year-old male history of prostate cancer bony mets. Slipped on the ice yesterday at 6 PM. Injuring his right rib cage and right flank. CAT scan will be obtained. Due to his hematuria CBC and CMP will be obtained. He is on Eliquis. Also UA will be obtained due to the gross hematuria. He does not want anything for pain. Repeat exam at 11:34 AM. I went over all test results with the patient and his family member at bedside. There is no acute injury on the CAT scans but there does look there is recurrence of his left prior renal cancer. He will need to follow this up with his urologist Dr. Cholo Morel. Both he and his family understand that. Otherwise we will be discharged to home. Outpatient follow-up both for his hematuria and recurrent left renal cancer. History & Record Review Discussion w/independent historian: Patient and Family Lab Data Attestation: I reviewed the patient's lab results. Lab results narrative: CBC shows normal white count of 5. H&H 14.6 and 41. Platelets are slightly low at 119 CMP shows a gap of 5. BUN of 31 creatinine 1.25. Glucose 112. Liver enzymes normal. Urinalysis shows 250 occult blood. No nitrates. Greater 100 red cells. No white cells nor bacteria. No infection. Labs: Laboratory Results - last 24 hr 10/10/24 10/10/24 09:05 10:30 WBC 5.6 RBC 4.55 L Hgb 14.6 Hct 41.8 MCV 91.9 MCH 32.1 H MCHC 34.9 RDW Std Deviation 46.7 H RDW Coeff of Oj 13.8 Plt Count 119 L MPV 10.2 Immature Gran % (Auto) 0.500 Neut % (Auto) 68.0 Lymph % (Auto) 20.0 Colbert % (Auto) 7.7 Eos % (Auto) 3.6 Baso % (Auto) 0.2 Absolute Neuts (auto) 3.8 Absolute Lymphs (auto) 1.12 Nucleated RBC % 0 Sodium 143 Potassium 4.0 Chloride 113 H Carbon Dioxide 25.0 Anion Gap 5 BUN 31 H Creatinine 1.25 Estim Creat Clear Calc 53.82 Est GFR (MDRD) Af Amer 71 Est GFR (MDRD) Non-Af 59 L BUN/Creatinine Ratio 24.8 H Glucose 112 H Calcium 9.2 Total Bilirubin 0.90 AST 17 ALT 22 Alkaline Phosphatase 51 Total Protein 6.4 Albumin 3.4 Globulin 3.0 Albumin/Globulin Ratio 1.1 Urine Color Red Urine Clarity Turbid Urine pH 6.5 Ur Specific Dupree 1.015 Urine Protein 500 H Urine Glucose (UA) Normal Urine Ketones Negative Urine Occult Blood 250 H Urine Nitrite Negative Urine Bilirubin Negative Urine Urobilinogen Normal Ur Leukocyte Esterase 25 H Urine RBC > 100 SEEN Urine WBC 0 SEEN Ur Squamous Epith Cells 0 SEEN Urine Bacteria 0 SEEN Urine Mucus 0 SEEN Radiography Diagnostic Testing: Clinical Impression(s) from Imaging Studies Chest/Abdomen/Pelvis CT 10/10/24 08:54 IMPRESSION: Mass in the left renal pelvis with hydronephrosis consistent with recurrence of renal cancer. Sclerotic osseous lesions consistent with metastatic prostate cancer. Splenomegaly. Interstitial fibrosis. No acute fracture. No solid organ injury. Electronically Signed: Matthew Clancy MD at 11:09 EST Reading Location ID and State: [facility] / [place] , Service support , ADDENDUM: 10/10/24 1128 IMPRESSION: Mass in the left renal pelvis with hydronephrosis consistent with recurrence of renal cancer. Sclerotic osseous lesions consistent with metastatic prostate cancer. Splenomegaly. Interstitial fibrosis. No acute fracture. No solid organ injury. N.B. : The above Results were Read Back by Matthew Clancy MD to Omar Camara MD, and understanding confirmed on 10/10/2024 11:21:42 (ET). Electronically Signed: Matthew Clancy MD at 11:09 EST , Discharge Plan Triage Chief Complaint: Fall ED Provider: Omar Camara Dx/Rx/DC Orders Clinical Impression: Fall, Hematuria, Chronic anticoagulation, Local recurrence of cancer of kidney, Contusion of rib Instructions: ED Hematuria Prescriptions: No Action Xtandi 40 mg capsule 160 mg PO DAILY Eligard (3 month) 22.5 mg syringe 22.5 mg subcut [id number] metoprolol succinate 50 mg tablet extended release 24 hr 50 mg PO DAILY Qty: 90 3RF glucos sul [id number] [Glucosamine Chondroitin] 1 cap PO DAILY simvastatin 20 MG tablet 20 mg PO QHS Patient Comments: CHOLESTEROL LOWERING calcium carbonate 500 mg calcium (1,250 mg) tablet 1,500 mg PO DAILY Eliquis 5 mg tablet 5 mg PO BID Qty: 180 3RF Primary Care Provider: Severino Mina NP Referrals: Bhargav Morel MD [Med Staff - Active Staff] - As soon as possible Severino Mina NP, TECHNICAL PROGRAM MANAGER-C [Primary Care Provider] - Activity Restrictions/Additional Instructions: Your labs look good. Your platelet count is mildly low. That can be rechecked in a month or so. The CAT scan of your chest looked good no rib fractures. The CAT scan of your abdomen showed no acute injury from the fall but there is a recurrence of your left renal cancer that you will need to follow-up with Dr. Morel about. I would call his office on Saturday and get an appointment to be seen a soon as possible. I suspect the bleeding you are seen in in your urine is from the left kidney cancer. Print Language: Nepali Disposition Disposition: Home, Self Care
[2024-10-10 09:10] VITALS: O2SAT 95
[2024-10-10 09:23] LABS: Absolute Lymphocyte Count 1.12 X10^3/uL (0.83-4.51); Absolute Neutrophil Count 3.8 X10^3/uL (2.0-7.7); Basophil# 0.01 X10^3/uL; Basophil% 0.2 % (0-1); Eosinophils% 3.6 % (0-5); Hematocrit 41.8 % (40-54); Hemoglobin 14.6 g/dL (13.0-16.5); Lymphocyte # 1.12 X10^3/ul (0.83-4.51); Mean Corp Hgb Conc 34.9 g/dL (32-36); Mean Corpuscular Hgb 32.1 pg (27.0-32.0); Mean Corpuscular Volume 91.9 fL (80-94); Mean Platelet Vol. 10.2 fl (6.2-12.0); Monocyte# 0.43 X10^3/uL; Monocyte% 7.7 % (0-10); NRBC Flagged by Analyzer 0 % (0-5); Neutrophil # 3.81 X10^3/uL (2.7-7.7); Platelet Count 119 K/mm3 (150-450); RBC Distribution Width CV 13.8 % (11.6-14.6); RBC Distribution Width SD 46.7 fl (35.1-43.9); Red Blood Count 4.55 M/mm3 (4.6-6.2); White Blood Count 5.6 K/mm3 (4.4-11.0)
[2024-10-10 09:55] LABS: ALB/GLOB Ratio 1.1 RATIO (0.9-2.4); AST(SGOT) 17 U/L (15-37); Alanine Aminotransfer ALT/SGPT 22 U/L (16-61); Albumin, Serum 3.4 g/dL (3.2-5.0); Alkaline Phosphatase 51 U/L (45-117); Anion Gap 5 (5-15); BUN 31 mg/dL (7-18); BUN/Creat Ratio 24.8 RATIO (10-20); Calcium,Total 9.2 mg/dL (8.5-10.1); Chloride 113 mmol/L (98-107); Creatinine, Serum 1.25 mg/dL (0.70-1.30); EST Glomerular Filtration Rate 59 mL/min (>60); Est Glom Filt Rate - Afr Amer 71 mL/min (>60); Estimated Creatinine Clearance 53.82 ml/min; Glucose 112 mg/dL (74-106); Protein, Total 6.4 g/dL (6.4-8.2); Sodium Level 143 mmol/L (136-145)
[2024-10-10 10:36] LABS: Bacteria 0 SEEN /hpf (None Seen); Mucous, Urine 0 SEEN /hpf (<or=2+); Squamous Epithelial Cells - UA 0 SEEN /hpf (0-5); White Blood Cells 0 SEEN /hpf (0-5)
[2024-10-10 10:39] LABS: Color, Urine Red (Yellow); Glucose, Dipstick Normal (Normal); Ketone-Dipstick Negative (Negative); Leukocyte Esterase-Dipstick 25 /ul (Negative); Nitrite-Dipstick Negative (Negative); Occult Blood-Urine 250 /ul (Negative); Protein-Dipstick 500 mg/dl (Negative); Specific Gravity, Urine 1.015 (1.002-1.030); Urine Bilirubin Dipstick Negative (Negative); Urine Clarity Turbid (Clear); Urine Urobilinogen Normal (Normal); Urine pH 6.5 (5.0 - 8.0)
[2024-10-10 10:44] VITALS: BP 131/71; PULSE 81; RESP 16; O2SAT 98
[2024-10-10 10:46] LABS: Red Blood Cells-Urine > 100 SEEN /hpf (0-5)
[2024-10-10 11:50] VITALS: BP 134/69; PULSE 72; RESP 15; TEMP 36.7; O2SAT 98
== END 2024-10-10 11:51 | disposition home or self-care (01) ==
PROVIDERS: Emergency Provider Emergency Medicine; PCP Nurse Practitioner Family; Visit Provider Emergency Medicine
DX: R31.9 Hematuria, unspecified (principal); C64.2 Malignant neoplasm of left kidney, except renal pelvis; Z79.01 Long term (current) use of anticoagulants; I10 Essential (primary) hypertension; E78.5 Hyperlipidemia, unspecified; S20.219A Contusion of unspecified front wall of thorax, initial encounter; W00.0XXA Fall on same level due to ice and snow, initial encounter; I25.2 Old myocardial infarction; Z85.46 Personal history of malignant neoplasm of prostate; Z79.899 Other long term (current) drug therapy; Z90.5 Acquired absence of kidney; Z98.49 Cataract extraction status, unspecified eye
CPT/HCPCS: 71260; 74177; 80053; 81001; 85025; 99283; Q9967; A4216

== ENCOUNTER 2024-10-21 12:57 | Inpatient (IN) | payer MEDICARE, SELFPAY ==
--- NOTE | 2024-10-19 07:51 | EKG12_ITS ---
Test Reason : PRE OP Blood Pressure : */* mmHG Vent. Rate : 101 BPM Atrial Rate : 416 BPM P-R Int : * ms QRS Dur : 138 ms QT Int : 368 ms P-R-T Axes : * -79 58 degrees QTcB Int : 477 ms Atrial fibrillation with rapid ventricular response Right bundle branch block Left anterior fascicular block Bifascicular block Abnormal ECG Confirmed by MARJ GAMEZ MD ([id number]), editor at large KIMBERLYN VAIL ([id number]) on 10/19/2024 1:54:17 PM Referred By: Bhargav Morel Confirmed By: MARJ GAMEZ MD
--- NOTE | 2024-10-19 09:38 | PAT.ANESEVAL ---
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 When Was Last Pacemaker Check QUESTION #4 FULL TEXT: You/Your Family Experience fever (hyperthermia) with Anesthesia Last Oral Intake Last Oral intake: Last Oral Intake NPO since Meds taken in AM with sips of water? Meds patient instructed to take am of surgery PONV PONV - and taxi instructor bus trolley: PONV - and taxi instructor bus trolley Female No 10/15/24 15:35 HX of Motion Sickness No 10/15/24 15:35 HX of N/V After Surgery No 10/15/24 15:35 Non-Smoker Yes 10/15/24 15:35 Duration of Surgery greater Yes 10/15/24 15:35 than 60 minutes Number of Risk Factors 2 10/15/24 15:35 PONV Score Moderate Risk 10/15/24 15:35 Height & Weight Height & Weight: Anesthesia: Height & Weight Height 5 ft 11 in 10/10/24 08:11 Respiratory Assessment Respiratory Assessment - and taxi instructor bus trolley: Respiratory Tract Infection Hx - and taxi instructor bus trolley Hx Respiratory Tract Infection No 10/15/24 15:35 STOP Sleep Apnea STOP Sleep Apnea - and taxi instructor bus trolley: STOP Sleep Apnea - and taxi instructor bus trolley Hx Hypertension Yes: CONTROLLED WITH MED 10/15/24 15:35 Hx Sleep Apnea No 10/15/24 15:35 CPAP No 05/23/22 11:04 BIPAP No 05/23/22 11:04 Do you snore loudly (louder No 10/15/24 15:35 than talking or can be heard Do you often feel tired/ Yes 10/15/24 15:35 fatigued/ sleepy during daytime? Has anyone observed you stop No 10/15/24 15:35 breathing during sleep? STOP Results Positive 10/15/24 15:35 QUESTION #5 FULL TEXT : Do you snore loudly (louder than talking or can be heard through closed doors)? 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 Specify any problems Hx of Preganancy in last 3 N/A 10/15/24 15:35 Months Nurse Filling Out Transfusion DSCHRIBER 10/15/24 15:35 & Questions: Date: 10/15/24 10/15/24 15:35 Time: 15:36 10/15/24 15:35 Patient unable to answer at this time (ie. confused, unrespo /Reproduction History /Reproductive History - and taxi instructor bus trolley: /Reproductive Hx- and taxi instructor bus trolley Hx Now No 10/15/24 15:35 Gestational Age (in weeks): EDC: Hx Hx Para Hx Section SAB No 10/15/24 15:35 [facility] Medical History (Updated 10/18/24 @ 00:01 by Background Daweion) Accidental fall Wears hearing aid Wears glasses Arthritis Cancer High cholesterol Non-smoker Shortness of breath on exertion History of echocardiogram Cardiology follow-up encounter History of Holter monitoring History of atrial fibrillation Essential (primary) hypertension Hx of non-ST elevation myocardial infarction (NSTEMI) Palpitations Dizziness Fatigue Paroxysmal supraventricular tachycardia Kidney carcinoma Hyperlipidemia Left kidney mass Secondary malignant neoplasm of bone Malignant neoplasm of prostate Home Medications ?Medication ?Instructions ?Recorded ?Last Taken ?Type simvastatin 20 mg tablet 20 mg PO QHS CHOLESTEROL 02/01/15 11/06/15 History enzalutamide 40 mg capsule (Xtandi) 160 mg PO DAILY PROSTATE 03/08/21 Unknown History calcium carbonate 1,500 mg PO DAILY SUPPLEMENT 02/25/24 Unknown History leuprolide (3 month) 22.5 mg (3 22.5 mg subcut [id number] PROSTATE 04/01/24 Unknown History month) subcutaneous syringe CANCER (Eligard) metoprolol succinate 50 mg 50 mg PO DAILY HEART #90 tabs 04/01/24 Unknown Rx tablet,extended release 24 hr glucos sul [id number] 1 cap PO DAILY SUPPLEMENT 06/29/24 Unknown History apixaban 5 mg tablet (Eliquis) 5 mg PO BID BLOOD THINNER #180 tabs 08/12/24 10/11/24 Rx Allergy/AdvReac Type Severity Reaction Status Date / Time amoxicillin AdvReac Intermediate Upset Verified 10/15/24 15:31 Stomach Family History Father Heart disease Mother Breast cancer Surgical History (Updated 10/15/24 @ 15:44 by Dione Hewitt) Hx of colonoscopy History of left heart catheterization (08/08/15) History of partial nephrectomy History of cataract extraction Social History Smoking Status: Never smoker alcohol intake: never substance use type: does not use caffeine: No Audit: Pertinent Findings Pertinent Findings EKG Perinent findings: 04/01/2024 sinus bradycardia 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
[2024-10-21] VITALS (11 sets, daily range): BP systolic 115–133; BP diastolic 53–79; PULSE 56–77; RESP 14–16; TEMP 36.1–36.9; O2SAT 93–99; BMI 27.8; BMI 28.9
[2024-10-21] MEDS: 0.9% Normal Saline (1000mL) 1,000 ML 15 ML IV (06:43)
--- NOTE | 2024-10-21 06:56 | PCM.PRE.AN2 ---
ASA Classification* ASA Classification ASA Classification: 3 Assessment & Plan Anesthesia* Anesthesia Assessment Anesthesia Assessment: Discussed sedation and/or anesthesia options, risks, benefits, and alternatives with patient/parents/legal guardian/POA. Questions invited. The patient/parents/legal guardian/POA seems to understand and agrees to proceed with anesthesia plan. Reviewed the physical assessment, medical history, allergy history and patient home medications list prior to surgery/procedure/anesthetic and documented any changes. Performed airway and anesthesia risk assessments. Anesthesia Type Anesthesia Type: General Anesthesia Focused Assessment* Temperature: 97.2 F Pulse Rate: 69 Blood Pressure: 130/77 Respiratory Rate: 16 Pulse Ox: 99 Airway Assessment Mouth opens: >3 cm Mallampati Score: II Focused Labs Anesthesia Preop lab: CBC WBC 5.6 K/mm3 (4.4-11.0) 10/10/24 09:05 RBC 4.55 M/mm3 (4.6-6.2) L 10/10/24 09:05 Hgb 14.6 g/dL (13.0-16.5) 10/10/24 09:05 Hct 41.8 % (40-54) 10/10/24 09:05 Plt Count 119 K/mm3 (150-450) L 10/10/24 09:05 CHEMISTRY Potassium 4.0 mmol/L (3.5-5.1) 10/10/24 09:05 Sodium 143 mmol/L (136-145) 10/10/24 09:05 Magnesium 1.8 mg/dL (1.6-2.6) 11/07/22 09:48 Phosphorus 2.7 mg/dL (2.5-4.9) 11/07/22 09:48 BUN 31 mg/dL (7-18) H 10/10/24 09:05 Creatinine 1.25 mg/dL (0.70-1.30) 10/10/24 09:05 Glucose 112 mg/dL (74-106) H 10/10/24 09:05 COAG Pre-Assessment Diagnosis/Proposed Procedure Planned Operative Procedure(s): LAP LEFT NEPHROURETEROSCOPY LEFT URETEROSCOPY TURBT LARGE Anesthesia History Anesthesia History - child care worker: Anesthesia History - child care worker Hx Hospitalization No 10/15/24 15:35 Any Problems With Anesthesia No 10/15/24 15:35 Cholinesterase deficiency No 10/15/24 15:35 You/Your Family Experience No 10/15/24 15:35 fever (hyperthermia) with Relationship Recent Exposure to Contagious No 10/21/24 06:29 Disease Does patient have nerve No 10/15/24 15:35 stimulator Patient instructed to have device shut off --Does patient have Pacemaker No 10/21/24 06:33 or ICD? When Was Last Pacemaker Check QUESTION #4 FULL TEXT: You/Your Family Experience fever (hyperthermia) with Anesthesia Last Oral Intake Last Oral intake: Last Oral Intake NPO since 00:00 10/21/24 06:33 Meds taken in AM with sips of Yes 10/21/24 06:33 water? Meds patient instructed to metoprolol 10/21/24 06:33 take am of surgery PONV PONV - child care worker: PONV - child care worker Female No 10/15/24 15:35 HX of Motion Sickness No 10/15/24 15:35 HX of N/V After Surgery No 10/15/24 15:35 Non-Smoker Yes 10/15/24 15:35 Duration of Surgery greater Yes 10/15/24 15:35 than 60 minutes Number of Risk Factors 2 10/15/24 15:35 PONV Score Moderate Risk 10/15/24 15:35 Height & Weight Height & Weight: Anesthesia: Height & Weight Height 5 ft 10 in 10/21/24 06:33 Weight: 88 kg 10/21/24 06:33 Body Mass Index (BMI) 27.8 10/21/24 06:33 Respiratory Assessment Respiratory Assessment - child care worker: Respiratory Tract Infection Hx - child care worker Hx Respiratory Tract Infection No 10/15/24 15:35 STOP Sleep Apnea STOP Sleep Apnea - child care worker: STOP Sleep Apnea - child care worker Hx Hypertension Yes: CONTROLLED WITH MED 10/15/24 15:35 Hx Sleep Apnea No 10/15/24 15:35 CPAP No 05/23/22 11:04 BIPAP No 05/23/22 11:04 Do you snore loudly (louder No 10/15/24 15:35 than talking or can be heard Do you often feel tired/ Yes 10/15/24 15:35 fatigued/ sleepy during daytime? Has anyone observed you stop No 10/15/24 15:35 breathing during sleep? STOP Results Positive 10/15/24 15:35 QUESTION #5 FULL TEXT : Do you snore loudly (louder than talking or can be heard through closed doors)? Tobacco Use History Tobacco Use History - child care worker: Tobacco Use History - child care worker Tobacco Use Smoking Status Never smoker 10/15/24 15:35 Hx Tobacco Use No 10/15/24 15:35 Years Smoking Packs Smoked per Day Smoking Cessation Date was within the last 15 years Hx Smoking Cessation Date Hx Smoking Cessation Counseling Hematologic Medial History Hematologic Hx - child care worker: Hematologic Medical Hx - certified coder Hx of Blood Transfusion No 10/15/24 15:35 Hx of Transfusion in last 3 No 10/15/24 15:35 Months Date of Last Transfusion (if within last 3 months) Ever experience any problems No 10/15/24 15:35 with transfusion(s)? Specify any problems Hx of Preganancy in last 3 N/A 10/15/24 15:35 Months Nurse Filling Out Transfusion DSCHRIBER 10/15/24 15:35 & Questions: Date: 10/15/24 10/15/24 15:35 Time: 15:36 10/15/24 15:35 Patient unable to answer at this time (ie. confused, unrespo /Reproduction History /Reproductive History - child care worker: /Reproductive Hx- child care worker Hx Now No 10/15/24 15:35 Gestational Age (in weeks): EDC: Hx Hx Para Hx Section SAB No 10/15/24 15:35 Active Medications Active Medications: Current Medications Generic Name Dose Route Start Last Admin Trade Name Freq PRN Reason Stop Dose Admin Cefazolin Sodium 2 gm/ N/A 20 mls @ 400 mls/hr 10/21/24 10:30 IV 10/21/24 10:32 PREOP ONE Sodium Chloride 1,000 mls @ 15 mls/hr 10/21/24 06:15 10/21/24 06:43 IV 10/26/24 19:34 15 mls/hr .Q48H MISSY Administration Protocol PFSH Medical History Accidental fall Wears hearing aid Wears glasses Arthritis Cancer High cholesterol Non-smoker Shortness of breath on exertion History of echocardiogram Cardiology follow-up encounter History of Holter monitoring History of atrial fibrillation Essential (primary) hypertension Hx of non-ST elevation myocardial infarction (NSTEMI) Palpitations Dizziness Fatigue Paroxysmal supraventricular tachycardia Kidney carcinoma Hyperlipidemia Left kidney mass Secondary malignant neoplasm of bone Malignant neoplasm of prostate Home Medications ?Medication ?Instructions ?Recorded ?Last Taken ?Type simvastatin 20 mg tablet 20 mg PO QHS CHOLESTEROL 02/01/15 10/19/24 History enzalutamide 40 mg capsule (Xtandi) 160 mg PO DAILY PROSTATE 03/08/21 10/19/24 History calcium carbonate 1,500 mg PO DAILY SUPPLEMENT 02/25/24 10/19/24 History leuprolide (3 month) 22.5 mg (3 22.5 mg subcut [id number] PROSTATE 04/01/24 09/04/24 History month) subcutaneous syringe CANCER (Eligard) metoprolol succinate 50 mg 50 mg PO DAILY HEART #90 tabs 04/01/24 10/21/24 Rx tablet,extended release 24 hr glucos sul [id number]-Mn 1 cap PO DAILY SUPPLEMENT 06/29/24 10/15/24 History apixaban 5 mg tablet (Eliquis) 5 mg PO BID BLOOD THINNER #180 tabs 08/12/24 10/11/24 Rx Allergy/AdvReac Type Severity Reaction Status Date / Time amoxicillin AdvReac Intermediate Upset Verified 10/15/24 15:31 Stomach Family History Father Heart disease Mother Breast cancer Surgical History Hx of colonoscopy History of left heart catheterization (08/08/15) History of partial nephrectomy History of cataract extraction Social History Smoking Status: Never smoker alcohol intake: never substance use type: does not use caffeine: No Review of Systems (Anesthesia) ROS Narrative System reviewed and no additional complaints, except as documented.
--- NOTE | 2024-10-21 07:30 | KID_PTH ---
PATIENT: ROSA MONROY LOC: MS3 U#:[id number] AGE/SX: 84/M ROOM: [facility] [place] RE10/21/[address]: Dr. Bhargav Morel MD : [id number] BED: 1 DIS: 10/23/2024 SPEC #: [id number] RECD: 10/21/24 11:47 STATUS: JORY HOWARD #: [id number] DINO: 10/21/24 07:[address]: Bhargav Morel DEPT: SURGICAL PATHOLOGY RECD BY: Esha Avalos ENTERED: 10/21/24 12:28 SP TYPE: KIDNEY OTHR DR: Severino Mina, STRAIGHTENER AND ALIGNER-C Tissues: Kidney, NOS Procedures: Surgery Specimen Level V HEADER OPERATION: Robotic left nephroureterectomy, left ureteroscopy PRE-OP DIAGNOSIS: Left renal mass TISSUE SUBMITTED: Left kidney and ureter MICROSCOPIC DIAGNOSIS Left kidney and ureter, left nephroureterectomy: Invasive papillary urothelial carcinoma. See cancer summary in the comment section. 10/26/2024 COMMENT RENAL CANCER SUMMARY Procedure - Nephroureterectomy Specimen laterality - Left Tumor site - renal pelvis and ureter Tumor size - renal pelvis: 6 x 4 x 1.5cm and proximal ureter up to the length of 2cm. Histologic type - Papillary urothelial carcinoma, invasive Associated epithelial lesions - None identified Histologic grade - Low grade (2/3) Tumor extension- Tumor invades subepithelial connective tissue Tumor configuration- Papillary Margins - Margins uninvolved by invasive carcinoma, carcinoma in situ and non-invasive urothelial carcinoma. Lymphvascular invasion - Not identified Regional lymph nodes - No nodes submitted or found Additional pathologic findings - Adrenal gland tissue, no pathologic diagnosis Additional pathologic findings in the non-neoplastic renal tissue: None PATHOLOGIC STAGE: pT1 pNx pMx The above summary is in compliance with [employer] [place] [employer] (CAP) Cancer Protocols Checklist and [place] [employer] Committee on Cancer (AJCC), Staging Manual, 8th Ed. 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 This case has been reviewed in consultation with Dr. Marcial who concurs with the above diagnosis. IDC:[id number] MICROSCOPIC DESCRIPTION Slides are reviewed. GROSS DESCRIPTION Received in fixative is one container labeled with the patient's name and designated Left kidney and ureter. The specimen consists of a radical nephroureterectomy specimen weighing 708gm. The kidney with attached perirenal adipose tissue measures 22 x 14 x 6cm. The attached ureter measures 25cm in length and 0.5cm in diameter. Clip is noted at the distal end. Also present in the container is a detached piece of adipose tissue with portion of adrenal gland measuring 2.5 x 1.5 x 0.5cm and portion of adrenal gland tissue measures 2 x 1 x 0.1cm and is inked black. More dictation will follow after fixation. [email or web address] 10/21/2024 The kidney measures 10 x 6 x 5cm. Kidney is sectioned and shows l dilated renal pelvis and calyces, filled with bloody fluid. A large mass is noted in the renal pelvis and calyces which is friable and measures 6 x 4 x 1.5cm. Proximal portion of the ureter also shows lumen filled with polypoid tumor up to 2cm in length. Rest of the ureter does not show any mass lesions. No involvement of the renal vessels is noted. Also present, at the superior end of specimen, adrenal gland measuring 3 x 2.5 x 0.2cm. No lesion is noted in the adrenal gland. Bods Developer sections are submitted in fourteen cassettes as follows: 1- ureteral and vascular resection margins, 2- adrenal gland tissue, 3- ureter, uninvolved portion, 4&5- proximal portion of ureter with tumor, 6- uninvolved kidney and perirenal adipose tissue, 7-10- tumor in the renal calyces and adjacent kidney, 11-14- tumor in the renal pelvis and calyces. Sections are submitted after additional fixation. [email or web address] 10/22/2024 TC:0 CPT:08540
--- NOTE | 2024-10-21 07:44 | HP.PCM_ITS ---
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 The patient had a prior left partial nephrectomy so I spoke to the patient regarding the risks of surgery this includes the risk of bleeding, infection, risk of injury to the colon bowel small bowel structures critical structures. Understands that there is a higher risk of complications because of prior surgery in the left kidney. All this was reviewed with the patient all his questions were addressed and organ to proceed today. [facility] Medical History Accidental fall Wears hearing aid Wears glasses Arthritis Cancer High cholesterol Non-smoker Shortness of breath on exertion History of echocardiogram Cardiology follow-up encounter History of Holter monitoring History of atrial fibrillation Essential (primary) hypertension Hx of non-ST elevation myocardial infarction (NSTEMI) Palpitations Dizziness Fatigue Paroxysmal supraventricular tachycardia Kidney carcinoma Hyperlipidemia Left kidney mass Secondary malignant neoplasm of bone Malignant neoplasm of prostate Home Medications ?Medication ?Instructions ?Recorded ?Last Taken ?Type simvastatin 20 mg tablet 20 mg PO QHS CHOLESTEROL 02/01/15 10/19/24 History enzalutamide 40 mg capsule (Xtandi) 160 mg PO DAILY PROSTATE 03/08/21 10/19/24 History calcium carbonate 1,500 mg PO DAILY SUPPLEMENT 02/25/24 10/19/24 History leuprolide (3 month) 22.5 mg (3 22.5 mg subcut [id number] PROSTATE 04/01/24 09/04/24 History month) subcutaneous syringe CANCER (Eligard) metoprolol succinate 50 mg 50 mg PO DAILY HEART #90 tabs 04/01/24 10/21/24 Rx tablet,extended release 24 hr glucos sul [id number] 1 cap PO DAILY SUPPLEMENT 06/29/24 10/15/24 History apixaban 5 mg tablet (Eliquis) 5 mg PO BID BLOOD THINNER #180 tabs 08/12/24 10/11/24 Rx docusate sodium 100 mg capsule 100 mg PO BID #30 caps 10/21/24 Unknown Rx (Colace) oxycodone 5 mg tablet 5 mg PO Q6H PRN pain 7 days #14 10/21/24 Unknown Rx tabs Allergy/AdvReac Type Severity Reaction Status Date / Time amoxicillin AdvReac Intermediate Upset Verified 10/15/24 15:31 Stomach Family History Father Heart disease Mother Breast cancer Surgical History Hx of colonoscopy History of left heart catheterization (08/08/15) History of partial nephrectomy History of cataract extraction Social History Smoking Status: Never smoker alcohol intake: never substance use type: does not use caffeine: No ROS Constitutional Constitutional: Denies chills, fever(s) or malaise Eyes Eyes: Denies blurry vision or change in vision ENT HEENT: Reports none Cardiovascular Cardiovascular: Denies chest pain or palpitations Respiratory/Chest Respiratory/Chest: Denies cough or shortness of breath with exertion Gastrointestinal Gastrointestinal: Denies abdominal pain, constipation or diarrhea Musculoskeletal Musculoskeletal: Denies back pain, joint stiffness or joint swelling Integumentary Integumentary: Denies dry skin, jaundice, lesions or rash Neurologic Neurologic: Denies confusion, syncope or weakness Psychiatric Psychiatric: Reports none; Denies anxiety or depression Endocrine Endocrinology: Denies excessive sweating, fatigue or flushing Hematologic/Lymphatic Hematologic/Lymphatic: Denies anemia, easy bleeding or easy bruising Vital Signs Vital Signs Vital Signs: 10/21/24 06:29 10/21/24 06:33 10/21/24 06:57 Temperature 97.2 F L 97.2 F L Temperature Source Temporal Pulse Rate 69 69 Respiratory Rate 16 16 Respiratory Pattern Normal Blood Pressure 130/77 H 130/77 H Blood Pressure Mean 94 Blood Pressure Source Monitor Blood Pressure Position Sitting Blood Pressure Location Left Arm Pulse Ox 99 99 Oxygen Delivery Method Room Air Weight Weight: 88 kg Body Mass Index (BMI) 27.8 Physical Exam Const alert and oriented x3 General Appearance: cooperative HEENT normocephalic, head/scalp atraumatic, EAC's normal and TM's normal bilaterally Eyes PERRL and EOMs intact bilaterally Pupil: sluggish Neck no lymphadenopathy, supple and no JVD General: trachea midline Lymph Lymphatic: no lymphadenopathy noted, lymphedema and lymphadenopathy Resp normal respiratory effort, normal air movement and clear to auscultation bilaterally Cardio regular rate, regular rhythm and peripheral pulses 2+ throughout GI soft to palpation, non-tender and non-distended Extremity normal capillary refill and no clubbing, cyanosis or edema General Extremity: no tenderness to palpation of joints or extremities Skin no rashes or lesions noted General Skin Exam: turgor normal Lesions: no lesions Rashes: no rashes Neuro CN's II-XII intact bilaterally Speech: speech normal Motor Exam: strength 5/5 throughout; Negative for general weakness Psych thought process normal, cooperative and affect normal Appearance: appropriate Assessment & Plan Assessment/Plan (1) Left renal mass: PLAN: Plan to proceed with cystoscopy left ureteroscopy and left nephro ureterectomy.
--- NOTE | 2024-10-21 07:46 | DCINST_ITS ---
Discharge Instructions Diet Discharge Diet: No restrictions DC O2, CPAP, BIPAP needs Home O2 Discharge instructions: No Dressing / Incision Discharge Activity: Return to Normal Activity and May Not Drive (while taking narcotic pain medications.) Dressing / Incision Call your doctor if you observe: Fever of 101 or Higher Catheter: Justice to leg bag and Justice to large bag Drain: [place] Follow Up Care Please Follow Up With: Bhargav Morel MD When: Call [phone] for an appointment , 1 week from discharge to remove justice. Test Results: Test results from this visit will be discussed in further detail at your follow- up appointment, if applicable. Discharge Plan Admission Admit Date/Time: 10/21/24 05:57 Primary Reason for Your Visit: Left nephro ureterectomy Attending Provider: Bhargav Morel Primary Care Provider: Severino Mina NP Discharge Orders/Prescriptions Prescriptions: New oxycodone 5 mg tablet 5 mg PO Q6H PRN (Reason: pain) 7 Days Qty: 14 0RF docusate sodium [Colace] 100 mg capsule 100 mg PO BID Qty: 30 0RF Continued Xtandi 40 mg capsule 160 mg PO DAILY Eligard (3 month) 22.5 mg syringe 22.5 mg subcut [id number] metoprolol succinate 50 mg tablet extended release 24 hr 50 mg PO DAILY Qty: 90 3RF glucos sul [id number] [Glucosamine Chondroitin] 1 cap PO DAILY simvastatin 20 MG tablet 20 mg PO QHS Patient Comments: CHOLESTEROL LOWERING calcium carbonate 500 mg calcium (1,250 mg) tablet 1,500 mg PO DAILY Held Eliquis 5 mg tablet 5 mg PO BID Qty: 180 3RF Hold Instructions: Resume on 11/04/24. Referrals / Follow Up: Bhargav Morel MD [Med Staff - Active Staff] - Severino Mina NP, NUMBERER AND WIRER-C [Primary Care Provider] - Disposition Disposition (needs filled in before D/C Order can be placed): Home, Self Care
[2024-10-21] MEDS: Cefazolin 2 GM in Syringe IV (07:50)
[2024-10-21] MEDS: Bupivacaine Mpf 0.5% 30 ML VIAL (09:10)
--- NOTE | 2024-10-21 11:12 | PCM.OPRPT ---
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 Post-Operative Diagnosis: The same Surgery/Procedure Performed: Cystoscopy, diagnostic left ureteroscopy, transurethral resection of the left ureteral orifice off the bladder large, laparoscopic robotic assisted left nephro ureterectomy pyrotechnics press tender: Yes Calibration Technician: Valerie Landeros Tasks completed by welder first class: Opening, Closing, Opening & closing, Harvesting grafts, Dissecting tissue, Removing tissue, Implanting device, Altering tissue, Insert Trochanter, Hemostasis: Clamp, Hemostasis: Tie, Hemostasis: Electrocautery, Trocar, Retracting and Other Additional drug safety assistant?: Yes Additional Associate Professor Of Church Music #2: Debbie Stewart Tasks completed by drug safety assistant #2: Opening, Closing, Opening & closing, Harvesting grafts, Dissecting tissue, Removing tissue, Implanting device, Altering tissue, Insert Trochanter, Hemostasis: Clamp, Hemostasis: Tie, Hemostasis: Electrocautery, Trocar, Retracting and Other Type of Anesthesia: General RN Documented Start/Stop Times: Operation Date: 10/21/24 07:30 Case Time Into Pre-Op 10/21/24 06:09 Out of Pre-Op 10/21/24 07:29 Anesthesia Start 10/21/24 07:37 Into Room 10/21/24 07:37 Procedure Start 10/21/24 07:57 Procedure Start Time: 07:57 Procedure Stop Time: 11:14 Select all DRAINS/GRAFTS/IMPLANTS that apply: Drains Drain details: justice catheter. Estimated Blood Loss: 250 Specimen collected: Yes Description of specimen(s) removed: Left kidney and left complete ureter Description of surgery: Indication is an 84-year-old male he has a history of prostate cancer currently managed with hormone therapy and Xtandi and stable, has a history of renal cell carcinoma and prior surgery on the left kidney and he had a left partial nephrectomy about 6 to 7 years ago. Recently presented to the emergency room with severe onset of bleeding CAT scan was done and it demonstrated a mass inside the renal pelvis large mass that was consistent with transitional cell carcinoma. Given his age and findings I did not think an upper tract endoscopic management of TCC would be a good option for him so he elected to have a nephro ureterectomy to remove the entire left kidney prior to the procedure organ to do a diagnostic left ureteroscopy to look at the mass to confirm diagnosis which is suspicious on CAT scan and also get a resect the left ureteral orifice off the bladder so that we can remove the ureter completely during the robotic part of the procedure. This procedure required multiple parts. First part the patient was taken back to the operating room and he was placed in dorsolithotomy position he was underwent general anesthesia I went inside the bladder and then an inspection of the entire bladder and bladder was clear of any tumors or cancer within the bladder no no papillary tumors within the bladder I then cannulated the left ureteral orifice with a Glidewire and over the Glidewire I went in with a Olympus 7.5 Kinyarwanda flexible ureteroscope was able to get into the ureter was able to go up to the renal pelvis initially was quite difficult to see because was very bloody once I got into the renal pelvis but after some irrigation then I can see a lot of papillary tumors consistent with transitional cell carcinoma which confirms the diagnosis visually that he had TCC of the upper tract of the left kidney I then worked my way down the ureter there was then a lot of blood coming down from the ureter. His Eliquis for atrial fibrillation had been on hold. I then went and went back into the bladder with the resectoscope to do the third part of the procedure and I scored all the way around the left ureteral orifice and then scored deeply all the way around the left ureteral orifice in order to free up the ureter from the bladder completely therefore the distal ureter was free from the muscle and also just hanging on by the a fat in the bladder and the distally once I was done with the resection of the ureter off the bladder distally then patient was repositioned on the table we took the drapes down we reposition for the robotic approach to the kidney. He was placed in full flank Allers pressure points were padded and then the abdomen was prepped and draped in usual sterile fashion. We went in first with a Veress needle into the peritoneum we filled the peritoneal cavity with CO2 gas placed our camera trocar left arm trocar right arm trocar second right right arm trocar and an air seal port for the drug safety assistant. He had prior surgeries so there was a lot of scar tissue. Once I got in there you could see that the bowel had been mobilized off the kidney was adherent back up to the drought's fascia so at the continue to remobilize the bowel off the kidney again this was scarred adhesions of the very difficult slow tedious dissection to get the colon released off of the drought's fascia very carefully starting up by the splenic flexure and working her way old down to the pelvis. Then I dissected below Andrew's fascia and then I got underneath the fascia and then and identified the ureter as I traced the ureter up again all this has been dissected out before encountered some old clips that been used to control blood vessels and then I dissected towards the hilum very slow tedious dissection as I had there was a lot of scar tissue from the prior surgery that made this slow tedious dissection get to the hilum eventually we are able to get to the hilum and free up the main renal artery and main renal vein were identified and freed in up with 2 clips down in the renal vein 1 clip up and transected and then 2 clips up to the renal artery and 1 clip up and transected then there was some lumbar branches that were going from the kidney to the lumbar I encountered some bleeding as I came across this some backbleeding and also him some bleeding from the lumbar at the put multiple clips to get this under control. With him once this was done then I worked my way up to the top of the kidney the adrenal gland was adherent to the kidney I did spare the adrenal gland and took half the adrenal gland off the kidney and then dissected all the way superiorly once I had dissected the hilum and all the way up to the top of the kidney then I did not dissect the lateral aspect of the kidney left that intact in order to help facilitate holding the ureter in place we then went and traced the ureter down to the pelvis this part was quite difficult since there was very little space we were able to retract laterally and then using blunt dissection was able to go all the way down the ureter to the bladder fortunately we had already dissected out the distal ureter from the bladder so that once I got distally into the fat then the the ureter plucked off the fat of the bladder and then came off I inspected the ureter and it was a complete resection of the ureter no tearing we did not put a clip in the distal part of the ureter to control any bleeding or spilling from the ureter. At this point the robot was we then the we undocked the fourth arm and then we dissected out the kidney completely off the lateral sidewall again is extremely adherent from prior surgery and then once I got this all completely dissected then the robot was undocked I scrubbed in and we placed the kidney and ureter in an Endo Catch bag we we extended the fourth arm extraction site we pulled out the kidney through that site and then I closed the site with running 2-0 Vicryl 2 layers and the through the oblique muscle layer and then through the fascial layer closed the second layer. And then through the air seal port at the extending incision and then we closed the air seal port with a [id number] stitch. We looked inside the abdomen prior to closing there was some dark old blood but no active bleeding we lowered the pressure down to 5 mm there was no signs of bleeding from the renal hilum or from the resection bed. Patient currently is anise anesthetic is being reversed estimated blood loss about 250 cc he is stable on the ventilator being extubated currently identification. 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 Admit VTE Documentation VTE Present on Admission: No VTE Mechan Device Prophylaxis: SCD's VTE Pharm Prophylaxis ordered?: No
--- NOTE | 2024-10-21 11:38 | PCM.POST.ANE ---
Anesthesia: Postop Eval I Current Vital Signs Temperature: 98.3 F Pulse Rate: 76 Blood Pressure: 122/53 Respiratory Rate: 16 Pulse Ox: 94 Oxygen Delivery Method: Room Air Assessment Airway patent: Yes Spontaneous unlabored respirations: Yes Mental status: Awake and Calm nausea: No Vomiting: No Anesthesia Complication: No Fluid Hydration Crystalloid volume administer (ml): 1,500 Total IV fluid infused: 1,500 Progress Note Anesthesia document: Postop Eval 1 completed: Yes
[2024-10-21 12:18] LABS: Absolute Lymphocyte Count 0.52 X10^3/uL (0.83-4.51); Absolute Neutrophil Count 6.2 X10^3/uL (2.0-7.7); Basophil# 0.01 X10^3/uL; Basophil% 0.1 % (0-1); Eosinophil# 0.01 X10^3/uL; Eosinophils% 0.1 % (0-5); Hematocrit 37.1 % (40-54); Hemoglobin 12.8 g/dL (13.0-16.5); Lymphocyte # 0.52 X10^3/ul (0.83-4.51); Lymphocyte % 7.4 % (19-41); Mean Corp Hgb Conc 34.5 g/dL (32-36); Mean Corpuscular Hgb 32.1 pg (27.0-32.0); Mean Platelet Vol. 10.1 fl (6.2-12.0); Monocyte# 0.19 X10^3/uL; Monocyte% 2.7 % (0-10); NRBC Flagged by Analyzer 0 % (0-5); Neutrophil # 6.22 X10^3/uL (2.7-7.7); Neutrophil % 88.7 % (47-70); POSITIVE DIFFERENTIAL YES; Platelet Count 121 K/mm3 (150-450); RBC Distribution Width CV 13.7 % (11.6-14.6); RBC Distribution Width SD 46.4 fl (35.1-43.9); Red Blood Count 3.99 M/mm3 (4.6-6.2)
[2024-10-21 12:29] LABS: Anion Gap 5 (5-15); BUN 16 mg/dL (7-18); Calcium,Total 7.8 mg/dL (8.5-10.1); Chloride 112 mmol/L (98-107); Creatinine, Serum 1.23 mg/dL (0.70-1.30); EST Glomerular Filtration Rate 60 mL/min (>60); Est Glom Filt Rate - Afr Amer 72 mL/min (>60); Estimated Creatinine Clearance 51.74 ml/min; Glucose 192 mg/dL (74-106); Sodium Level 141 mmol/L (136-145)
--- NOTE | 2024-10-21 13:01 | POSTOPAN2_ITS ---
Anesthesia Postop Eval I Sum Postop Eval Completion status Anesthesia document: Postop Eval 1 completed: Yes Anesthesia Postop Eval I Summary Anesthesia Postop Eval I Summary: Anesthesia Postop Eval I: Assessment Summary Airway patent Yes 10/21/24 11:40 PROJECT ENGINEERING DIRECTOR.[email or web address] Spontaneous unlabored Yes 10/21/24 11:40 PROJECT ENGINEERING DIRECTOR.GDOTT respirations Mental status Awake,Calm 10/21/24 11:40 PROJECT ENGINEERING DIRECTOR.GDOTT nausea No 10/21/24 11:40 PROJECT ENGINEERING DIRECTOR.GDOTT Vomiting No 10/21/24 11:40 PROJECT ENGINEERING DIRECTOR.GDOTT Anesthesia Postop Eval I: Fluid Summary Crystalloid volume administer 1,500 10/21/24 11:40 PROJECT ENGINEERING DIRECTOR.GDOTT (ml) Colloids volume administered ( ml) Blood Product volume administered (ml) Total IV fluid infused 1,500 10/21/24 11:40 PROJECT ENGINEERING DIRECTOR.GDOTT Anesthesia Postop Eval I: Summary Notes Anesthesia Complication No 10/21/24 11:40 PROJECT ENGINEERING DIRECTOR.GDOTT Anesthesia Complication Comment: Post-operative progress note Anesthesia: Postop Eval II Evaluation Mental status: Awake Pain Level: 0 nausea: No Vomiting: No
--- NOTE | 2024-10-21 13:01 | PCM.POSTANE2 ---
Anesthesia Postop Eval I Sum Postop Eval Completion status Anesthesia document: Postop Eval 1 completed: Yes Anesthesia Postop Eval I Summary Anesthesia Postop Eval I Summary: Anesthesia Postop Eval I: Assessment Summary Airway patent Yes 10/21/24 11:40 ENTERPRISE APPLICATION ARCHITECT.[email or web address] Spontaneous unlabored Yes 10/21/24 11:40 ENTERPRISE APPLICATION ARCHITECT.GDOTT respirations Mental status Awake,Calm 10/21/24 11:40 ENTERPRISE APPLICATION ARCHITECT.GDOTT nausea No 10/21/24 11:40 ENTERPRISE APPLICATION ARCHITECT.GDOTT Vomiting No 10/21/24 11:40 ENTERPRISE APPLICATION ARCHITECT.GDOTT Anesthesia Postop Eval I: Fluid Summary Crystalloid volume administer 1,500 10/21/24 11:40 ENTERPRISE APPLICATION ARCHITECT.GDOTT (ml) Colloids volume administered ( ml) Blood Product volume administered (ml) Total IV fluid infused 1,500 10/21/24 11:40 ENTERPRISE APPLICATION ARCHITECT.GDOTT Anesthesia Postop Eval I: Summary Notes Anesthesia Complication No 10/21/24 11:40 ENTERPRISE APPLICATION ARCHITECT.GDOTT Anesthesia Complication Comment: Post-operative progress note Anesthesia: Postop Eval II Evaluation Mental status: Awake Pain Level: 0 nausea: No Vomiting: No
[2024-10-21] MEDS: Cefazolin 1 GM/50 ML BAG IV (18:27)
[2024-10-21] MEDS: 0.9% Normal Saline (1000mL) 1,000 ML 125 ML IV (18:39)
[2024-10-21] MEDS: Atorvastatin Calcium 10 MG Tablet PO (22:22)
[2024-10-21] MEDS: Tolterodine Tartrate 2 MG CAP.SA PO (22:22)
[2024-10-21] MEDS: Acetaminophen 325 MG Tablet 650 MG PO (22:22)
[2024-10-21] MEDS: Docusate Sodium 100 MG Capsule 200 MG PO (22:22)
[2024-10-21] MEDS: oxyCODONE 5 MG Tablet PO (22:23)
[2024-10-22] VITALS (9 sets, daily range): BP systolic 113–139; BP diastolic 59–76; PULSE 65–88; RESP 14–18; TEMP 36.7–37.2; O2SAT 93–98
[2024-10-22] MEDS: Cefazolin 1 GM/50 ML BAG IV (00:37)
[2024-10-22] MEDS: 0.9% Normal Saline (1000mL) 1,000 ML 125 ML IV ×3 (02:22→20:17)
[2024-10-22 06:47] LABS: Absolute Lymphocyte Count 0.88 X10^3/uL (0.83-4.51); Absolute Neutrophil Count 6.9 X10^3/uL (2.0-7.7); Basophil# 0.01 X10^3/uL; Basophil% 0.1 % (0-1); Eosinophil# 0.01 X10^3/uL; Eosinophils% 0.1 % (0-5); Hematocrit 32.6 % (40-54); Hemoglobin 11.1 g/dL (13.0-16.5); Lymphocyte # 0.88 X10^3/ul (0.83-4.51); Lymphocyte % 10.1 % (19-41); Mean Corpuscular Hgb 31.4 pg (27.0-32.0); Mean Corpuscular Volume 92.4 fL (80-94); Mean Platelet Vol. 9.8 fl (6.2-12.0); Monocyte# 0.83 X10^3/uL; Monocyte% 9.6 % (0-10); NRBC Flagged by Analyzer 0 % (0-5); Neutrophil % 79.4 % (47-70); Platelet Count 132 K/mm3 (150-450); RBC Distribution Width CV 13.9 % (11.6-14.6); RBC Distribution Width SD 47.1 fl (35.1-43.9); Red Blood Count 3.53 M/mm3 (4.6-6.2); White Blood Count 8.7 K/mm3 (4.4-11.0)
[2024-10-22 07:02] LABS: Anion Gap 7 (5-15); BUN 17 mg/dL (7-18); BUN/Creat Ratio 11.3 RATIO (10-20); Calcium,Total 7.7 mg/dL (8.5-10.1); Chloride 112 mmol/L (98-107); EST Glomerular Filtration Rate 48 mL/min (>60); Est Glom Filt Rate - Afr Amer 58 mL/min (>60); Estimated Creatinine Clearance 43.18 ml/min; Glucose 146 mg/dL (74-106); Potassium 4.1 mmol/L (3.5-5.1); Sodium Level 140 mmol/L (136-145)
--- NOTE | 2024-10-22 07:39 | PCM.PN.GU ---
Subjective Subjective s/p left nephr U uretertomy doing well adv diet full liquids no BMs or gas yet IVF home with justice on discharge. Objective Data Objective Data Vital Signs: Vital Signs Temp Pulse Resp BP Pulse Ox O2 Del Method O2 Flow Rate 98.5 F 65 16 115/59 L 93 Room Air 2 10/22/24 06:17 10/22/24 06:17 10/22/24 06:17 10/22/24 06:17 10/22/24 06:17 10/22/24 06:17 10/22/24 02:19 Oxygen Flow Rate (L/min) 2 Oxygen Delivery Method Room Air Weight: 91.5 kg Body Mass Index (BMI) 28.9 Intake & Output: Intake and Output for Last 24 Hours 10/20/24 10/21/24 10/22/24 23:59 23:59 23:59 Intake Total 1070 / 1195 1439.58 / 1439.58 Output Total 1100 / 1500 750 / 750 Balance -30 / -305 689.58 / 689.58 Lab / Micro Data 10/22/24 06:21 10/22/24 06:21 Labs: Laboratory Results - last 24 hr 10/21/24 12:00: WBC 7.0, RBC 3.99 L, Hgb 12.8 L, Hct 37.1 L, MCV 93.0, MCH 32.1 H, MCHC 34.5, RDW Std Deviation 46.4 H, RDW Coeff of Oj 13.7, Plt Count 121 L, MPV 10.1, Immature Gran % (Auto) 1.000 H, Neut % (Auto) 88.7 H, Lymph % (Auto) 7.4 L, [place] % (Auto) 2.7, Eos % (Auto) 0.1, Baso % (Auto) 0.1, Absolute Neuts (auto) 6.2, Absolute Lymphs (auto) 0.52 L, Nucleated RBC % 0, Sodium 141, Potassium 4.0, Chloride 112 H, Carbon Dioxide 24.0, Anion Gap 5, BUN 16, Creatinine 1.23, Estim Creat Clear Calc 51.74, Est GFR (MDRD) Af Amer 72, Est GFR (MDRD) Non-Af 60, BUN/Creatinine Ratio 13.0, Glucose 192 H, Calcium 7.8 L 10/22/24 06:21: WBC 8.7, RBC 3.53 L, Hgb 11.1 L, Hct 32.6 L, MCV 92.4, MCH 31.4, MCHC 34.0, RDW Std Deviation 47.1 H, RDW Coeff of Oj 13.9, Plt Count 132 L, MPV 9.8, Immature Gran % (Auto) 0.700, Neut % (Auto) 79.4 H, Lymph % (Auto) 10.1 L, [place] % (Auto) 9.6, Eos % (Auto) 0.1, Baso % (Auto) 0.1, Absolute Neuts (auto) 6.9, Absolute Lymphs (auto) 0.88, Nucleated RBC % 0, Sodium 140, Potassium 4.1, Chloride 112 H, Carbon Dioxide 22.0, Anion Gap 7, BUN 17, Creatinine 1.50 H, Estim Creat Clear Calc 43.18, Est GFR (MDRD) Af Amer 58 L, Est GFR (MDRD) Non-Af 48 L, BUN/Creatinine Ratio 11.3, Glucose 146 H, Calcium 7.7 L
[2024-10-22] MEDS: Metoprolol(XL)Succ 50 MG Tablet PO (08:38)
[2024-10-22] MEDS: Docusate Sodium 100 MG Capsule 200 MG PO ×2 (08:38→20:20)
--- NOTE | 2024-10-22 15:09 | CHAPLAIN ---
Type of Pastoral Visit _x__ Initial Visit ___ Follow-up Visit ___ On-call Visit ___ General Patient Visit ___ Spiritual Assessment ___ Family Conference ___ Bereavement ___ Rapid Response ___ Code Blue ___ Other (describe below) Pastoral Care Referral From _x__ Patient ___ Family ___ Nurse ___ Physician ___ Structural Iron Worker ___ Experience Planning Strategist ___ Other (describe below) Sacrament/Intervention _x__ Active listening ___ Anointing ___ Roman Catholic ___ Bereavement ___ Communion _x__ Monie exploration ___ _x__ Life review _x__ Prayer ___ Reconciliation ___ Sacrament of Sick _x__ Supportive presence ___ Wedding ___ Other (describe below) Pastoral Comments patient is sitting up in the chair; spouse and daughter are in the room; all are welcoming; pt gives the initial reason for coming to the hospital and then daughter fills in the blanks; pt had a fall that led to his issue which led to his discovery of tumor and surgery; pt reports that he sees the hand of God in the circumstances and has received excellent care from the doctor and the staff; pt is connected to a local spiritism and has monie as an important part of his life and way to view the situations of life; pt welcomes presence and prayers
--- NOTE | 2024-10-22 15:10 | CASEMGMT ---
DOROTHY MILLER Assessment: Face to Face with pt for initial transition planning/care coordination assessment. RN PAUL introduced self and role at [facility], pt voices understanding and consents to assessment. Pt is A&O x4 and answers all questions appropriately at this time. Pt sitting up in bed in no distress. Care providers, pharmacy, and demographics verified/updated. Admitting Dx: robotic left nephroureterecomty, TURBT Strata Score: 2 PCP:Severino Mcclelland NP Specialists:Adriel, uro; Deniz, onc; Luna, cardio Preferred Pharmacy: [facility] Insurance: [employer] Prescription Benefit: yes LNOK: Cherelle Hargrove, ; Zaira Arturo, dtr Living Arrangements: Pt lives with in a single story home with 1 step to enter. Pt reports he is I in ADLs and performs IADLs but he could if he needed to. Pt denies concerns at home. Transportation: Pt drives self and denies concerns with transportation. DME:grab bars x 2 at garage entrance, cane- don't use HHC/SNF: Denies hx of Pt states no concerns with going home at time of dc. Pt states he has never had a justice catheter before but feels after education he can manage this at home. 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 Pt is aware to notify DOROTHY MILLER if he should not feel comfortable with the justice. Pt states no further concerns/needs. CM to follow. Advised pt to ask CM if any further questions/concerns/needs arise, voices understanding. Pt Goal: Home Plan: Home Siobhan DE LA CRUZ CM
[2024-10-22] MEDS: Atorvastatin Calcium 10 MG Tablet PO (20:20)
[2024-10-23 04:00] VITALS: BP 131/76; PULSE 76; RESP 16; TEMP 36.7; O2SAT 95
[2024-10-23 06:03] LABS: Absolute Lymphocyte Count 0.81 X10^3/uL (0.83-4.51); Basophil# 0.01 X10^3/uL; Basophil% 0.1 % (0-1); Eosinophil# 0.03 X10^3/uL; Eosinophils% 0.4 % (0-5); Hematocrit 31.8 % (40-54); Hemoglobin 10.9 g/dL (13.0-16.5); Lymphocyte # 0.81 X10^3/ul (0.83-4.51); Lymphocyte % 10.5 % (19-41); Mean Corp Hgb Conc 34.3 g/dL (32-36); Mean Corpuscular Hgb 32.2 pg (27.0-32.0); Mean Corpuscular Volume 94.1 fL (80-94); Mean Platelet Vol. 9.3 fl (6.2-12.0); Monocyte# 0.79 X10^3/uL; Monocyte% 10.3 % (0-10); NRBC Flagged by Analyzer 0 % (0-5); Neutrophil # 6.02 X10^3/uL (2.7-7.7); Neutrophil % 78.2 % (47-70); Platelet Count 111 K/mm3 (150-450); Red Blood Count 3.38 M/mm3 (4.6-6.2); White Blood Count 7.7 K/mm3 (4.4-11.0)
--- NOTE | 2024-10-23 06:47 | PCM.PN.GU ---
Subjective Subjective Postoperative day #2 status post left nephro ureterectomy, patient looks well, hemoglobin stable blood work looks good. He has tolerated full liquid diet last night passed a lot of gas abdomen is less distended soft and benign nontender incisions are all clean and intact. We can advance to regular diet and he can probably go home later today after lunch as long as he is tolerating diet. Objective Data Objective Data Vital Signs: Vital Signs Temp Pulse Resp BP Pulse Ox O2 Del Method O2 Flow Rate 98.1 F 76 16 131/76 H 95 Room Air 2 10/23/24 04:00 10/23/24 04:00 10/23/24 04:00 10/23/24 04:00 10/23/24 04:00 10/23/24 04:00 10/22/24 02:19 Oxygen Flow Rate (L/min) 2 Oxygen Delivery Method Room Air Weight: 91.5 kg Body Mass Index (BMI) 28.9 Intake & Output: Intake and Output for Last 24 Hours 10/21/24 10/22/24 10/23/24 23:59 23:59 23:59 Intake Total 1070 / 1195 5489.58 / 5964.58 1475 / 1475 Output Total 1100 / 1500 2200 / 2800 1200 / 1200 Balance -30 / -305 3289.58 / 3164.58 275 / 275 Lab / Micro Data 10/23/24 05:51 10/22/24 06:21 Labs: Laboratory Results - last 24 hr 10/22/24 06:21: WBC 8.7, RBC 3.53 L, Hgb 11.1 L, Hct 32.6 L, MCV 92.4, MCH 31.4, MCHC 34.0, RDW Std Deviation 47.1 H, RDW Coeff of Oj 13.9, Plt Count 132 L, MPV 9.8, Immature Gran % (Auto) 0.700, Neut % (Auto) 79.4 H, Lymph % (Auto) 10.1 L, [place] % (Auto) 9.6, Eos % (Auto) 0.1, Baso % (Auto) 0.1, Absolute Neuts (auto) 6.9, Absolute Lymphs (auto) 0.88, Nucleated RBC % 0, Sodium 140, Potassium 4.1, Chloride 112 H, Carbon Dioxide 22.0, Anion Gap 7, BUN 17, Creatinine 1.50 H, Estim Creat Clear Calc 43.18, Est GFR (MDRD) Af Amer 58 L, Est GFR (MDRD) Non-Af 48 L, BUN/Creatinine Ratio 11.3, Glucose 146 H, Calcium 7.7 L 10/23/24 05:51: WBC 7.7, RBC 3.38 L, Hgb 10.9 L, Hct 31.8 L, MCV 94.1 H, MCH 32.2 H, MCHC 34.3, RDW Std Deviation 48.0 H, RDW Coeff of Oj 14.0, Plt Count 111 L, MPV 9.3, Immature Gran % (Auto) 0.500, Neut % (Auto) 78.2 H, Lymph % (Auto) 10.5 L, [place] % (Auto) 10.3 H, Eos % (Auto) 0.4, Baso % (Auto) 0.1, Absolute Neuts (auto) 6.0, Absolute Lymphs (auto) 0.81 L, Nucleated RBC % 0 Physical Exam Narrative He is alert and oriented x 3 no acute distress interactive talking normal, normal respirations of breathing, abdomen soft and benign he is got bowel sounds. Reports passing gas. No swelling in extremities no clubbing cyanosis or edema in extremities. Assessment & Plan Assessment/Plan (1) Left renal mass: PLAN: Status post left nephro ureterectomy for transitional cell carcinoma of the left upper renal tract. He will go home today with a Hernandez catheter
[2024-10-23 06:48] LABS: Anion Gap 4 (5-15); BUN 18 mg/dL (7-18); BUN/Creat Ratio 11.5 RATIO (10-20); Chloride 114 mmol/L (98-107); Creatinine, Serum 1.57 mg/dL (0.70-1.30); EST Glomerular Filtration Rate 45 mL/min (>60); Est Glom Filt Rate - Afr Amer 55 mL/min (>60); Estimated Creatinine Clearance 41.25 ml/min; Glucose 144 mg/dL (74-106); Potassium 3.9 mmol/L (3.5-5.1); Sodium Level 140 mmol/L (136-145)
[2024-10-23 07:35] VITALS: BP 140/80; PULSE 70; RESP 18; TEMP 36.8; O2SAT 95
[2024-10-23 10:14] VITALS: PULSE 72
[2024-10-23] MEDS: Metoprolol(XL)Succ 50 MG Tablet PO (10:14)
[2024-10-23] MEDS: Docusate Sodium 100 MG Capsule 200 MG PO (10:14)
[2024-10-23 11:10] VITALS: BP 142/77; PULSE 78; RESP 18; TEMP 36.8; O2SAT 93
== END 2024-10-23 11:27 | disposition home or self-care (01) | DRG 658 ==
LOC: MS3 10-22 08:03
PROVIDERS: Admitting Provider Urology; PCP Nurse Practitioner Family; Referring Provider Urology; Visit Provider Urology
PROC: 0TT74ZZ Resection of Left Ureter, Percutaneous Endoscopic Approach (ICD-10-PCS; CPT 50546; principal; 2024-10-21 07:10)
PROC: 0TBB8ZZ Excision of Bladder, Via Natural or Artificial Opening Endoscopic (ICD-10-PCS; 2024-10-21 07:10)
DX: C64.2 Malignant neoplasm of left kidney, except renal pelvis (principal); E78.5 Hyperlipidemia, unspecified; I10 Essential (primary) hypertension; I48.0 Paroxysmal atrial fibrillation; I25.2 Old myocardial infarction; Z79.891 Long term (current) use of opiate analgesic
CPT/HCPCS: 36415; 80048; 85025; 88307; 93005; 94668; A4216; C1769; J2405

== ENCOUNTER → 2024-11-24 | Outpatient (CLI) | payer MEDICARE, SELFPAY ==
[2024-11-24 15:49] LABS: PSA,Total- Diagnostic 7.61 ng/mL (0.0-4.0)
== END | disposition home or self-care (01) ==
LOC: LAB 14:50
PROVIDERS: PCP Nurse Practitioner Family; Referring Provider Urology; Visit Provider Urology
DX: C61 Malignant neoplasm of prostate (principal)
CPT/HCPCS: 36415; 84153

== ENCOUNTER → 2024-12-18 | Outpatient (CLI) | payer MEDICARE, SELFPAY ==
--- NOTE | 2024-12-18 07:33 | NM_ITS ---
PROCEDURE: BONE SCAN WHOLE BODY REASON FOR EXAM: PROSTATE CA. Rising PSA. Renal carcinoma. Status post left nephrectomy. TECHNIQUE: Blood flow, blood pool, and delayed phase imaging of the after radiopharmaceutical administration RADIOPHARMACEUTICAL: mCi Technetium-99m MDP IV COMPARISON: Prior whole-body bone scan dated March 17, 2022. FINDINGS: Increased radiopharmaceutical uptake in the left inferior pubic ramus extending into the lateral aspect of the left superior pubic ramus. This has progressed as compared to prior study. Focal uptake is also seen in the superior aspect of the left sacroiliac joint suggestive of a metastatic deposits. Focal increased uptake also seen along the anterior aspect of the right and left 10th and 11th ribs respectively suggestive of metastatic deposit. Faint uptake is also seen along the anterolateral aspect of the right 4th rib. Increased uptake also seen on the left side of the mid cervical spine. Mild increased markings in the lower lumbar spine suggestive of possible degenerative change. The patient is status post left nephrectomy. NM/Bone Scan Whole Body IMPRESSION: Interval progressive uptake along the left inferior pubic ramus as well as the left sacroiliac joints suggestive of progressive metastasis. Increased uptake in the ribs as described. This has progressed as well. Status post left nephrectomy. Reading Location: [place] [id number]
== END | disposition home or self-care (01) ==
LOC: NM 07:32
PROVIDERS: PCP Nurse Practitioner Family; Referring Provider Urology; Visit Provider Urology
DX: C61 Malignant neoplasm of prostate (principal)
CPT/HCPCS: 78306; A9503

== ENCOUNTER → 2025-01-19 | Outpatient (CLI) | payer MEDICARE, SELFPAY ==
--- NOTE | 2025-01-19 08:37 | ECHODONC_ITS ---
Reason For Study Reason For Study: High risk meds Procedure This was a 2D Doppler, Color Flow transthoracic echocardiogram. Myocardial strain analysis was performed in this exam to aid in the assessment of cardiac function. Exam performed in department. Left Ventricle Normal LV size. The estimated ejection fraction is 57 %. Stage 1 diastolic dysfunction. No regional wall motion abnormalities noted. Right Ventricle Normal RV size. Normal systolic function. Atria Normal left atrium. Normal right atrium. Mitral Valve Mild diffuse mitral valve thickening. Mild (1+) eccentric mitral valve insufficiency. Tricuspid Valve Normal tricuspid valve. Mild tricuspid valve insufficiency. Pulmonary artery systolic pressure is 36 mmHg. Aortic Valve Trisinus/trileaflet aortic valve. Mild focal aortic valve thickening. Mild (1+) eccentric aortic valve insufficiency. Pulmonic Valve Normal pulmonic valve. Mild (1+) pulmonic valve insufficiency. Great Vessels Mildly dilated aortic root. The pulmonary artery is normal size. Inferior vena cava collapse with respiration. Pericardium/Pleural No pericardial effusion. MMode/2D Measurements & Calculations LVIDd: 5.4 cm IVSd: 1.2 cm LVOT diam: 3.1 cm RVDd: 3.6 cm LVPWd: 0.90 cm LVOT area: 7.7 cm2 Ao root diam: 4.2 cm LAV(MOD-bp): 62.4 ml LVAd ap4: 33.4 cm2 LAV(MOD-bp) Indexed: 30.3 ml/m2 LVLd ap4: 8.4 cm LAV(MOD-sp2): 63.9 ml EDV(MOD-sp4): 113.0 ml LAV(MOD-sp4): 59.3 ml EDV(sp4-el): 112.9 ml LVAs ap4: 20.8 cm2 LVLs ap4: 7.0 cm ESV(MOD-sp4): 54.4 ml ESV(sp4-el): 52.3 ml EF(MOD-sp4): 51.9 % EF(sp4-el): 53.7 % LVAd ap2: 32.0 cm2 SV(MOD-sp4): 58.6 ml SV(MOD-sp2): 61.4 ml LVLd ap2: 8.3 cm SI(MOD-sp4): 28.5 ml/m2 SI(MOD-sp2): 29.8 ml/m2 EDV(MOD-sp2): 105.8 ml EDV(sp2-el): 104.9 ml LVAs ap2: 19.5 cm2 LVLs ap2: 7.7 cm ESV(MOD-sp2): 44.4 ml ESV(sp2-el): 42.2 ml EF(MOD-sp2): 58.0 % SV(sp4-el): 60.6 ml LA A4 area: 20.6 cm2 LA dimension(2D): 4.5 cm RA A4 area: 15.8 cm2 TAPSE: 1.7 cm Time Measurements MV dec time: 0.24 sec Doppler Measurements & Calculations MV E max bhargav: 42.8 cm/sec Lat Peak E' Bhargav: 7.6 cm/sec Med Peak E' Bhargav: 5.0 cm/sec MV A max bhargav: 88.9 cm/sec E/E' lat: 5.6 E/E' med: 8.6 MV E/A: 0.48 MV dec slope: 181.6 cm/sec2 Ao V2 max: 190.3 cm/sec AI max bhargav: 343.5 cm/sec Ao max P.5 mmHg AI max P.2 mmHg Ao V2 mean: 131.8 cm/sec AI dec slope: 215.1 cm/sec2 Ao mean P.8 mmHg AI P1/2t: 467.7 msec Ao V2 VTI: 44.4 cm AV (velocity ratio): 0.63 AAKASH(I,D): 4.8 cm2 AAKASH(V,D): 4.3 cm2 LV V1 max: 107.1 cm/sec SV(LVOT): 214.9 ml PA V2 max: 110.3 cm/sec LV V1 max P.6 mmHg LV V1 mean P.8 mmHg LV V1 mean: 78.7 cm/sec LV V1 VTI: 28.1 cm TR max bhargav: 281.8 cm/sec TR max P.8 mmHg ECHO/ONC Echo Complete Interpretation Summary Normal LV size. The estimated ejection fraction is 57 %. Mild (1+) eccentric mitral valve insufficiency. Mild (1+) eccentric aortic valve insufficiency. Stage 1 diastolic dysfunction. Pulmonary artery systolic pressure is 36 mmHg. The global longitudinal strain is normal. The global longitudinal strain = -19. 9 % (normal). Ordering Physician: Rod Guaman Referring Physician: Severino Mian Performed By: Laya Adams RDCS
== END | disposition home or self-care (01) ==
LOC: CVS 08:34
PROVIDERS: PCP Nurse Practitioner Family; Referring Provider Internal Medicine Medical Oncology; Visit Provider Internal Medicine Medical Oncology
DX: Z01.818 Encounter for other preprocedural examination (principal)
CPT/HCPCS: 93306; 93356

== ENCOUNTER 2025-02-03 09:23 | Day surgery (SDC) | payer MEDICARE, SELFPAY ==
--- NOTE | 2025-01-22 13:51 | PAT.ANE_ITS ---
Pre-Assessment Diagnosis/Proposed Procedure Planned Operative Procedure(s): SPACE OAR AND GOLD MARKERS Anesthesia History Anesthesia History - human resources project coordinator: Anesthesia History - human resources project coordinator Hx Hospitalization No 01/22/25 13:11 Any Problems With Anesthesia No 01/22/25 13:11 Cholinesterase deficiency No 01/22/25 13:11 You/Your Family Experience No 01/22/25 13:11 fever (hyperthermia) with Relationship Recent Exposure to Contagious No 10/21/24 06:29 Disease Does patient have nerve No 01/22/25 13:11 stimulator Patient instructed to have device shut off --Does patient have Pacemaker or ICD? When Was Last Pacemaker Check QUESTION #4 FULL TEXT: You/Your Family Experience fever (hyperthermia) with Anesthesia Last Oral Intake Last Oral intake: Last Oral Intake NPO since Meds taken in AM with sips of water? Meds patient instructed to take am of surgery PONV PONV - human resources project coordinator: PONV - human resources project coordinator Female No 01/22/25 13:11 HX of Motion Sickness No 01/22/25 13:11 HX of N/V After Surgery No 01/22/25 13:11 Non-Smoker Yes 01/22/25 13:11 Duration of Surgery greater No 01/22/25 13:11 than 60 minutes Number of Risk Factors 1 01/22/25 13:11 PONV Score Low Risk 01/22/25 13:11 Height & Weight Height & Weight: Anesthesia: Height & Weight Height 5 ft 10 in 01/21/25 10:28 Respiratory Assessment Respiratory Assessment - human resources project coordinator: Respiratory Tract Infection Hx - human resources project coordinator Hx Respiratory Tract Infection No 01/22/25 13:11 STOP Sleep Apnea STOP Sleep Apnea - human resources project coordinator: STOP Sleep Apnea - human resources project coordinator Hx Hypertension Yes: CONTROLLED WITH MED 01/22/25 13:11 Hx Sleep Apnea No 01/22/25 13:11 CPAP No 01/22/25 13:11 BIPAP No 01/22/25 13:11 Do you snore loudly (louder No 01/22/25 13:11 than talking or can be heard Do you often feel tired/ Yes 01/22/25 13:11 fatigued/ sleepy during daytime? Has anyone observed you stop No 01/22/25 13:11 breathing during sleep? STOP Results Positive 01/22/25 13:11 QUESTION #5 FULL TEXT : Do you snore loudly (louder than talking or can be heard through closed doors)? 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 Specify any problems Hx of Preganancy in last 3 N/A 01/22/25 13:11 Months Nurse Filling Out Transfusion DSCHRIBER 01/22/25 13:11 & Questions: Date: 01/22/25 01/22/25 13:11 Time: 13:13 01/22/25 13:11 Patient unable to answer at this time (ie. confused, unrespo /Reproduction History /Reproductive History - human resources project coordinator: /Reproductive Hx- human resources project coordinator Hx Now Gestational Age (in weeks): EDC: Hx Hx Para Hx Section SAB No 01/22/25 13:11 PFSH Medical History (Updated 01/22/25 @ 13:17 by Dione Hewitt) Accidental fall Wears hearing aid Wears glasses Arthritis Cancer High cholesterol Non-smoker Shortness of breath on exertion History of echocardiogram Cardiology follow-up encounter History of Holter monitoring History of atrial fibrillation Essential (primary) hypertension Hx of non-ST elevation myocardial infarction (NSTEMI) Palpitations Dizziness Fatigue Paroxysmal supraventricular tachycardia Kidney carcinoma Hyperlipidemia Left kidney mass Secondary malignant neoplasm of bone Malignant neoplasm of prostate Home Medications ?Medication ?Instructions ?Recorded ?Last Taken ?Type simvastatin 20 mg tablet 20 mg PO QHS CHOLESTEROL 10/19/24 History calcium carbonate 1,500 mg PO DAILY SUPPLEMENT 02/25/24 10/19/24 History leuprolide (3 month) 22.5 mg (3 22.5 mg subcut [id number] S PROSTATE 04/01/24 09/04/24 History month) subcutaneous [facility] metoprolol succinate 50 mg 50 mg PO DAILY HEART #90 ta bs 04/01/24 10/21/24 Rx tablet,extended release 24 hr glucos sul [id number] 1 cap PO DAILY SUPPLEME NT 06/29/24 10/15/24 History apixaban 5 mg tablet (Eliquis) 5 mg PO BID BLOOD THINN ER #180 tabs 11/23/24 Unknown Rx Allergy/AdvReac Type Severity Reaction Status Date / Time amoxicillin AdvReac Intermediate Upset Verified 01/22/25 13:09 Stomach Family History Father Heart disease Mother Breast cancer Surgical History (Updated 01/22/25 @ 13:17 by Dione Hewitt) History of nephrectomy, left (~10/2024) Hx of colonoscopy History of left heart catheterization (08/08/15) History of partial nephrectomy History of cataract extraction Social History Smoking Status: Never smoker alcohol intake: never substance use type: does not use caffeine: No Audit: Pertinent Findings Pertinent Findings EKG Perinent findings: 10/19/2024. Atrial fibrillation with rapid ventricular response. 101 bpm. Right bundle branch block. Left anterior fascicular block. Echo (EF%) pertinent findings: 01/19/2025. Normal size. Ejection fraction 57%. Pulmonary artery pressure 36. Consult pertinent findings: 12/30/2024. Cardiology. Paroxysmal atrial fibrillation. Chronic. Metoprolol. Eliquis. Stable. Hypertension. Well- controlled. Recommendation Anesthesia Recommendation Anesthesia recommendation: OPTIMIZED for anesthesia
[2025-02-03] VITALS (8 sets, daily range): BP systolic 121–135; BP diastolic 64–103; PULSE 56–65; RESP 16; TEMP 36.1–36.9; O2SAT 95–100; BMI 27.2
--- NOTE | 2025-02-03 09:52 | PCM.PRE.AN2 ---
ASA Classification* ASA Classification ASA Classification: 3 Assessment & Plan Anesthesia* Anesthesia Assessment Anesthesia Assessment: Discussed sedation and/or anesthesia options, risks, benefits, and alternatives with patient/parents/legal guardian/POA. Questions invited. The patient/parents/legal guardian/POA seems to understand and agrees to proceed with anesthesia plan. Reviewed the physical assessment, medical history, allergy history and patient home medications list prior to surgery/procedure/anesthetic and documented any changes. Performed airway and anesthesia risk assessments. Anesthesia Type Anesthesia Type: General Anesthesia Focused Assessment* Airway Assessment Mouth opens: >3 cm Mallampati Score: II Focused Labs Anesthesia Preop lab: CBC WBC 5.3 K/mm3 (4.4-11.0) 12/23/24 10:54 12/23/24 RBC 4.00 M/mm3 (4.6-6.2) L 12/23/24 10:54 12/23/24 Hgb 12.7 g/dL (13.0-16.5) L 12/23/24 10:54 12/23/24 Hct 37.3 % (40-54) L 12/23/24 10:54 12/23/24 Plt Count 135 K/mm3 (150-450) L 12/23/24 10:54 12/23/24 CHEMISTRY Potassium 4.6 mmol/L (3.3-5.1) 12/23/24 10:54 12/23/24 Sodium 140 mmol/L (133-145) 12/23/24 10:54 12/23/24 Magnesium 1.8 mg/dL (1.6-2.6) 11/07/22 09:48 11/07/22 Phosphorus 2.7 mg/dL (2.5-4.9) 11/07/22 09:48 11/07/22 BUN 31 mg/dL (4-19) H 12/23/24 10:54 12/23/24 Creatinine 1.49 mg/dL (0.70-1.20) H 12/23/24 10:54 12/23/24 Glucose 118 mg/dL (70-99) H 12/23/24 10:54 12/23/24 COAG Pre-Assessment Diagnosis/Proposed Procedure Planned Operative Procedure(s): SPACE OAR AND GOLD MARKERS Anesthesia History Anesthesia History - in store marketing representative: Anesthesia History - in store marketing representative Hx Hospitalization No 01/22/25 13:11 Any Problems With Anesthesia No 01/22/25 13:11 Cholinesterase deficiency No 01/22/25 13:11 You/Your Family Experience No 01/22/25 13:11 fever (hyperthermia) with Relationship Recent Exposure to Contagious No 10/21/24 06:29 Disease Does patient have nerve No 01/22/25 13:11 stimulator Patient instructed to have device shut off --Does patient have Pacemaker or ICD? When Was Last Pacemaker Check QUESTION #4 FULL TEXT: You/Your Family Experience fever (hyperthermia) with Anesthesia Last Oral Intake Last Oral intake: Last Oral Intake NPO since Meds taken in AM with sips of water? Meds patient instructed to take am of surgery PONV PONV - in store marketing representative: PONV - in store marketing representative Female No 01/22/25 13:11 HX of Motion Sickness No 01/22/25 13:11 HX of N/V After Surgery No 01/22/25 13:11 Non-Smoker Yes 01/22/25 13:11 Duration of Surgery greater No 01/22/25 13:11 than 60 minutes Number of Risk Factors 1 01/22/25 13:11 PONV Score Low Risk 01/22/25 13:11 Height & Weight Height & Weight: Anesthesia: Height & Weight Height 5 ft 10 in 01/21/25 10:28 Respiratory Assessment Respiratory Assessment - in store marketing representative: Respiratory Tract Infection Hx - in store marketing representative Hx Respiratory Tract Infection No 01/22/25 13:11 STOP Sleep Apnea STOP Sleep Apnea - in store marketing representative: STOP Sleep Apnea - in store marketing representative Hx Hypertension Yes: CONTROLLED WITH MED 01/22/25 13:11 Hx Sleep Apnea No 01/22/25 13:11 CPAP No 01/22/25 13:11 BIPAP No 01/22/25 13:11 Do you snore loudly (louder No 01/22/25 13:11 than talking or can be heard Do you often feel tired/ Yes 01/22/25 13:11 fatigued/ sleepy during daytime? Has anyone observed you stop No 01/22/25 13:11 breathing during sleep? STOP Results Positive 01/22/25 13:11 QUESTION #5 FULL TEXT : Do you snore loudly (louder than talking or can be heard through closed doors)? 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 Specify any problems Hx of Preganancy in last 3 N/A 01/22/25 13:11 Months Nurse Filling Out Transfusion DSCHRIBER 01/22/25 13:11 & Questions: Date: 01/22/25 01/22/25 13:11 Time: 13:13 01/22/25 13:11 Patient unable to answer at this time (ie. confused, unrespo /Reproduction History /Reproductive History - in store marketing representative: /Reproductive Hx- in store marketing representative Hx Now Gestational Age (in weeks): EDC: Hx Hx Para Hx Section SAB No 01/22/25 13:11 Active Medications Active Medications: Current Medications Generic Name Dose Route Start Last Admin Trade Name Freq PRN Reason Stop Dose Admin Cefazolin Sodium 2 gm/ Sodium 110 mls @ 150 mls/hr 02/03/25 14:00 Chloride IV 02/03/25 14:43 INTRAOP ONE Lactated Ringer's 1,000 mls @ 15 mls/hr 02/03/25 09:45 IV .Q48H MISSY PFSH Medical History Accidental fall Wears hearing aid Wears glasses Arthritis Cancer High cholesterol Non-smoker Shortness of breath on exertion History of echocardiogram Cardiology follow-up encounter History of Holter monitoring History of atrial fibrillation Essential (primary) hypertension Hx of non-ST elevation myocardial infarction (NSTEMI) Palpitations Dizziness Fatigue Paroxysmal supraventricular tachycardia Kidney carcinoma Hyperlipidemia Left kidney mass Secondary malignant neoplasm of bone Malignant neoplasm of prostate Home Medications ?Medication ?Instructions ?Recorded ?Last Taken ?Type simvastatin 20 mg tablet 20 mg PO QHS CHOLESTEROL 02/01/15 10/19/24 History calcium carbonate 1,500 mg PO DAILY SUPPLEMENT 02/25/24 10/19/24 History leuprolide (3 month) 22.5 mg (3 22.5 mg subcut [id number] PROSTATE 04/01/24 09/04/24 History month) subcutaneous syringe CANCER (Eligard) metoprolol succinate 50 mg 50 mg PO DAILY HEART #90 tabs 04/01/24 10/21/24 Rx tablet,extended release 24 hr glucos sul [id number] 1 cap PO DAILY SUPPLEMENT 06/29/24 10/15/24 History apixaban 5 mg tablet (Eliquis) 5 mg PO BID BLOOD THINNER #180 tabs 11/23/24 Unknown Rx Allergy/AdvReac Type Severity Reaction Status Date / Time amoxicillin AdvReac Intermediate Upset Verified 01/22/25 13:09 Stomach Family History Father Heart disease Mother Breast cancer Surgical History History of nephrectomy, left (~10/2024) Hx of colonoscopy History of left heart catheterization (08/08/15) History of partial nephrectomy History of cataract extraction Social History Smoking Status: Never smoker alcohol intake: never substance use type: does not use caffeine: No Review of Systems (Anesthesia) ROS Narrative System reviewed and no additional complaints, except as documented.
[2025-02-03] MEDS: Lactated Ringers 1,000 ML 15 ML IV (10:27)
--- NOTE | 2025-02-03 11:06 | PCM.HP.STD ---
HPI - General General Date of Service: 02/03/25 Chief Complaint: Prostate cancer HPI Narrative ROSA MONROY, is a 84 M who presents for placement of gold markers and spacer gel for prostate cancer treatments with radiation [facility] Medical History Accidental fall Wears hearing aid Wears glasses Arthritis Cancer High cholesterol Non-smoker Shortness of breath on exertion History of echocardiogram Cardiology follow-up encounter History of Holter monitoring History of atrial fibrillation Essential (primary) hypertension Hx of non-ST elevation myocardial infarction (NSTEMI) Palpitations Dizziness Fatigue Paroxysmal supraventricular tachycardia Kidney carcinoma Hyperlipidemia Left kidney mass Secondary malignant neoplasm of bone Malignant neoplasm of prostate Home Medications ?Medication ?Instructions ?Recorded ?Last Taken ?Type simvastatin 20 mg tablet 20 mg PO QHS CHOLESTEROL 02/01/15 10/19/24 History calcium carbonate 1,500 mg PO DAILY SUPPLEMENT 02/25/24 10/19/24 History leuprolide (3 month) 22.5 mg (3 22.5 mg subcut [id number] PROSTATE 04/01/24 09/04/24 History month) subcutaneous syringe CANCER (Eligard) metoprolol succinate 50 mg 50 mg PO DAILY HEART #90 tabs 04/01/24 02/03/25 06:00 Rx tablet,extended release 24 hr glucos sul [id number]-C-Mn 1 cap PO DAILY SUPPLEMENT 06/29/24 10/15/24 History apixaban 5 mg tablet (Eliquis) 5 mg PO BID BLOOD THINNER #180 tabs 11/23/24 01/29/25 Rx Allergy/AdvReac Type Severity Reaction Status Date / Time amoxicillin AdvReac Intermediate Upset Verified 02/03/25 10:15 Stomach Family History Father Heart disease Mother Breast cancer Surgical History History of nephrectomy, left (~10/2024) Hx of colonoscopy History of left heart catheterization (08/08/15) History of partial nephrectomy History of cataract extraction Social History Smoking Status: Never smoker alcohol intake: never substance use type: does not use caffeine: No Vital Signs Vital Signs Vital Signs: 02/03/25 10:22 02/03/25 10:22 Temperature 98.1 F Temperature Source Temporal Pulse Rate 65 Respiratory Rate 16 Respiratory Pattern Normal Blood Pressure 121/68 H Blood Pressure Mean 85 Blood Pressure Source Monitor Blood Pressure Position Semi-Fowlers Blood Pressure Location Right Arm Pulse Ox 100 Oxygen Delivery Method Room Air Weight Weight: 86.2 kg Body Mass Index (BMI) 27.2
--- NOTE | 2025-02-03 11:08 | PCM.DC ---
Discharge Instructions Diet Discharge Diet: No restrictions DC O2, CPAP, BIPAP needs Home O2 Discharge instructions: No Dressing / Incision Discharge Activity: Return to Normal Activity and May Not Drive (while taking narcotic pain medications.) Dressing / Incision Call your doctor if you observe: Fever of 101 or Higher Follow Up Care Please Follow Up With: Bhargav Morel MD When: Call [phone] for an appointment Test Results: Test results from this visit will be discussed in further detail at your follow-up appointment, if applicable. Discharge Plan Admission Primary Reason for Your Visit: Gold markers and spacer gel Attending Provider: Bhargav Morel Primary Care Provider: Severino Mina NP Instructions Print Language: Faroese Discharge Orders/Prescriptions Prescriptions: Continued Eligard (3 month) 22.5 mg syringe 22.5 mg subcut [id number] metoprolol succinate 50 mg tablet extended release 24 hr 50 mg PO DAILY Qty: 90 3RF glucos sul [id number] [Glucosamine Chondroitin] 1 cap PO DAILY simvastatin 20 MG tablet 20 mg PO QHS Patient Comments: CHOLESTEROL LOWERING calcium carbonate 500 mg calcium (1,250 mg) tablet 1,500 mg PO DAILY Held Eliquis 5 mg tablet 5 mg PO BID Qty: 180 3RF Hold Instructions: Resume on 02/05/25. Referrals / Follow Up: Bhargav Morel MD [Med Staff - Active Staff] - Severino Mina NP, ULTRASONIC SEAMING MACHINE OPERATOR-C [Primary Care Provider] - Disposition Disposition (needs filled in before D/C Order can be placed): Home, Self Care
[2025-02-03] MEDS: Cefazolin 2 GM in 0.9% Normal Saline (100mL Bag) 100 ML IV (11:31)
--- NOTE | 2025-02-03 11:48 | OP.PCM_ITS ---
Operative Report (Standard) Operative Information Date of Procedure: 02/03/25 Pre-Operative Diagnosis: prostate cancer Post-Operative Diagnosis: same Surgery/Procedure Performed: placement of gold markers and spacer gel graphic design assistant: No Type of Anesthesia: General RN Documented Start/Stop Times: Operation Date: 02/03/25 11:35 Case Time Into Pre-Op 02/03/25 09:43 Anesthesia Start 02/03/25 11:31 Into Room 02/03/25 11:31 Procedure Start 02/03/25 11:43 Procedure Start Time: 11:43 Procedure Stop Time: 11:48 Select all DRAINS/GRAFTS/IMPLANTS that apply: None Estimated Blood Loss: 0 Specimen collected: No Description of surgery: In the preoperative area I reviewed with the patient how the procedure is done we talked about the risk of the procedure including the risk of infection, bleeding, migration of the spacer gel, the patient is planning to have radiation to the prostate he understands that the spacer gel has demonstrated benefit in reducing the risk of toxicity from the ration radiation to the rectum but there is no guarantees that this spacer gel will prevent any serious complications or toxicity to the rectum or bowels. After reviewing this with the patient and his family organ to proceed with placement of a spacer gel matrix. Patient was taken back to the operating room after smooth induction of anesthesi a he was placed supine on the table. The penis and testicles were prepped and draped in usual sterile fashion, ultrasound probe was placed into the rectum and biplanar ultrasound was performed on the prostate. Identified the base mid and apex of the prostate identified the transition zone prostate. Then using a needle the first marker maker was placed into the right base of the prostate, the second marker maker was placed in the left base of the prostate, and the third core marker was placed in the right apex of the prostate after all 3 markers were placed the placement of the markers were confirmed by ultrasonography.The genitals and perineum were prepped and draped in usual sterile fashion. I then introduced a biplanar ultrasound probe into the rectum and performed ultrasonography and identified the Denonvilliers' fascia the prostate mid base and apex and seminal vesicles. The spacer gel mix was then prepared on the back table per manufactures instruction. Under ultrasound guidance in the midline perineum a bevel needle down we advanced through the perineum below the prostate into the space of Denonvilliers' fascia. This space which could be identified by ultrasound with a bright white layer between the prostate and the rectum. I then injected a puff of normal saline to identify the space further. After I confirmed that the needle was in the correct space in the mid prostate and the space of Denonvilliers' fascia between the rectum and the prostate. Then over the course of 15 seconds the gel matrix was injected slowly there was nice separation between the prostate and the rectum at the gel matrix was injected. The position of the gel matrix was confirmed by ultrasound. Then the injection needle was removed intact. Patient's perineum was cleaned patient was taken out of stirrups and then taken back to the PACU in good condition. Surgical Findings: gold markers placed and spacer gel Complications Complications: No Admit VTE Documentation VTE Present on Admission: No VTE Mechan Device Prophylaxis: SCD's VTE Pharm Prophylaxis ordered?: No
--- NOTE | 2025-02-03 11:59 | PCM.POST.ANE ---
Anesthesia: Postop Eval I Current Vital Signs Temperature: 98.5 F Pulse Rate: 62 Blood Pressure: 126/72 Respiratory Rate: 16 Pulse Ox: 97 Oxygen Delivery Method: Room Air Assessment Airway patent: Yes Spontaneous unlabored respirations: Yes Mental status: Awake nausea: No Vomiting: No Anesthesia Complication: No Fluid Hydration Crystalloid volume administer (ml): 500 Total IV fluid infused: 500 Progress Note Anesthesia document: Postop Eval 1 completed: Yes
--- NOTE | 2025-02-03 12:50 | POSTOPAN2_ITS ---
Anesthesia Postop Eval I Sum Postop Eval Completion status Anesthesia document: Postop Eval 1 completed: Yes Anesthesia Postop Eval I Summary Anesthesia Postop Eval I Summary: Anesthesia Postop Eval I: Assessment Summary Airway patent Yes 02/03/25 11:59 [email or web address] Spontaneous unlabored Yes 02/03/25 11:59 [email or web address] [email or web address] respirations Mental status Awake 02/03/25 11:59 [email or web address] nausea No 02/03/25 11:59 [email or web address] [email or web address] Vomiting No 02/03/25 11:59 [email or web address] Anesthesia Postop Eval I: Fluid Summary Crystalloid volume administer 500 02/03/25 11:59 [email or web address] (ml) Colloids volume administered ( ml) Blood Product volume administered (ml) Total IV fluid infused 500 02/03/25 11:59 [email or web address] Anesthesia Postop Eval I: Summary Notes Anesthesia Complication No 02/03/25 11:59 [email or web address] Anesthesia Complication Comment: Post-operative progress note Anesthesia: Postop Eval II Evaluation Mental status: Awake Pain Level: 0 nausea: No Vomiting: No
--- NOTE | 2025-02-03 12:50 | PCM.POSTANE2 ---
Anesthesia Postop Eval I Sum Postop Eval Completion status Anesthesia document: Postop Eval 1 completed: Yes Anesthesia Postop Eval I Summary Anesthesia Postop Eval I Summary: Anesthesia Postop Eval I: Assessment Summary Airway patent Yes 02/03/25 11:59 [email or web address] Spontaneous unlabored Yes 02/03/25 11:59 [email or web address] respirations Mental status Awake 02/03/25 11:59 [email or web address] nausea No 02/03/25 11:59 [email or web address] [email or web address] Vomiting No 02/03/25 11:59 [email or web address] Anesthesia Postop Eval I: Fluid Summary Crystalloid volume administer 500 02/03/25 11:59 [email or web address] (ml) Colloids volume administered ( ml) Blood Product volume administered (ml) Total IV fluid infused 500 02/03/25 11:59 [email or web address] Anesthesia Postop Eval I: Summary Notes Anesthesia Complication No 02/03/25 11:59 [email or web address] Anesthesia Complication Comment: Post-operative progress note Anesthesia: Postop Eval II Evaluation Mental status: Awake Pain Level: 0 nausea: No Vomiting: No
== END 2025-02-03 12:55 | disposition home or self-care (01) ==
LOC: SDC 09:23 → AC 09:25
PROVIDERS: PCP Nurse Practitioner Family; Referring Provider Urology; Visit Provider Urology
PROC: (CPT 55874; principal; 2025-02-03 11:20)
DX: C61 Malignant neoplasm of prostate (principal); C79.51 Secondary malignant neoplasm of bone; I48.91 Unspecified atrial fibrillation; I10 Essential (primary) hypertension; E78.00 Pure hypercholesterolemia, unspecified; Z90.5 Acquired absence of kidney; Z79.01 Long term (current) use of anticoagulants; Z79.899 Other long term (current) drug therapy; Z85.528 Personal history of other malignant neoplasm of kidney
CPT/HCPCS: 55876; 55874; 00902; A4648; C1889; J2405

== ENCOUNTER → 2025-02-10 | Outpatient (CLI) | payer MEDICARE, SELFPAY ==
--- NOTE | 2025-02-10 13:55 | MRI_ITS ---
PROCEDURE: PELVIS W/WO CONTRAST, 02/10/2025 REASON FOR EXAM: PROSTATE CANCER WITH PELVIC BONE METS TECHNIQUE: Multisequence multiplanar MRI pelvis was performed with and without IV contrast. IV Contrast: 18 mL Clariscan COMPARISON: 12/29/2024 FINDINGS: A history of reported prior remote therapy for prostate cancer is noted. Note that in this context, PI-RADS cannot be applied as it is intended for treatment naive glands. Prostate size: 4.0 x 2.4 x 3.7 cm, estimated volume 18.5 mL. Transition zone: Diffuse mild largely homogeneous T2 hypointensity throughout the transition zone, without significant restricted diffusion. In the absence of prior therapy, findings would be borderline but felt most consistent with PI-RADS 3. Transition zone extracapsular extension:No gross extracapsular extension, however, there is capsular abutment greater than 1 cm anteriorly which increases the risk of occult early/microscopic extracapsular extension. Peripheral Zone: Somewhat diffuse mild/moderate T2 hypointensity throughout the peripheral zone, making delineation of additional discrete lesions challenging. Majority of this region demonstrates mild restricted diffusion, however there is a focal area of moderate to marked restricted diffusion along the LEFT peripheral zone centered in the posterolateral segment and extending from midgland to apex. This is extremely difficult to delineate on T2 given background signal abnormalities throughout the peripheral zone but spans up to 1.6 cm on diffusion (for example, series 6 image 18-21). This is at the level of axial T2 series 14, images 19-22, and appears to correspond to the previous PET/CT finding. Early/contemporaneous enhancement is seen within the LEFT posterolateral gland. In the absence of prior therapy, findings in this region would be best considered PI-RADS 5. Virtually the entire background peripheral zone would be best considered PI-RADS 3. Peripheral zone extracapsular extension:No gross extracapsular extension, however, there is diffuse capsular abutment well over 1 cm which increases the risk of occult early/microscopic extracapsular extension. Note this includes immediate abutment of the region of the bilateral neurovascular bundles and anterior rectum, without gross invasion of the structures. Neurovascular bundles: As above. Seminal vesicles: Unremarkable. Bladder: Underdistended and suboptimally evaluated, grossly unremarkable. Lymph nodes: External iliac nodes up to 9 mm short axis distally on the LEFT and 8 mm short axis on the RIGHT. These previously measured 7 mm bilaterally and were not previously PSMA avid. Bones: Redemonstrated presumed osseous metastases involving the LEFT iliac bone/SI joint, LEFT ischium, and LEFT inferior pubic ramus, measuring up to 4.5 cm, 3.4 cm, and 1.4 cm, respectively. Lesion in the LEFT ischium may have enlarged from prior PET/CT allowing for the difference in modality. Lesion in the LEFT ischium may be new or newly visible/enlarged from that time. Presumed degenerative soft tissue enhancement along the hamstring origins/ischial tuberosities and [id number] hip. Other: Trace nonspecific pelvic free fluid tiny fat containing LEFT inguinal hernia.. MRI/Pelvis W/WO Contrast IMPRESSION: 1. A history of reported prior remote therapy for prostate cancer is noted. Not e that in this context, PI-RADS cannot be applied as it is intended for treatment naive glands. 2. Peripheral zone: Ill-defined roughly 1.6 cm lesion centered in the LEFT post erolateral peripheral zone midgland to apex is suspicious in the absence of prior therapy would be best considered PI-RADS 5. This appears to correlate with the previous PET/CT finding. Background signal abnormalities throughout the entirety of the peripheral zones which are borderline but in the absence of prior therapy would be most consistent with PI-RADS 3. 3. Transition zone: Ill-defined diffuse signal abnormality which would be diffi cult to characterize in the absence of prior therapy, again felt most consistent with PI-RADS 3. 4. Although there is no definite extracapsular extension, there is diffuse caps ular abutment well over 1 cm which increases the risk of occult early/microscopic extracapsular extension. Note this includes im mediate abutment of the region of the bilateral neurovascular bundles and anterior rectum, without gross invasion of these stru ctures. 5. New mild LEFT and borderline minimal RIGHT external iliac lymphadenopathy by PI-RADS criteria, not previously PSMA however slightly enlarged, indeterminate. Clinical/oncologic follow-up recommended. 6. Redemonstrated and slightly increased osseous metastatic disease from previo us PET/CT allowing for the difference in modality, as detailed. 7. Additional description as above. Reading Location: [id number]
== END | disposition home or self-care (01) ==
PROVIDERS: PCP Nurse Practitioner Family; Referring Provider Student in an Organized Health Care Education/Training Program; Visit Provider Student in an Organized Health Care Education/Training Program
DX: C61 Malignant neoplasm of prostate (principal); C79.51 Secondary malignant neoplasm of bone
CPT/HCPCS: 72197; A9575; A4216